=== PATIENT | male | born 1965 | race Caucasian/White ===

== ENCOUNTER 2017-03-07 12:07 | Day surgery (SDC) | payer BC ==
[~2017-03-07 12:07] MED LIST: Buffered Lidocaine 0.9% SYRIN* 5 ML/SYR SYRINGE INTRADERM ONE
[2017-03-07] MEDS ORDERED: Buffered Lidocaine 0.9% SYRIN* 5 ML/SYR SYRINGE ONE (12:48)
[2017-03-07] MEDS ORDERED: cefTRIAXone(*) 1 GM ADVAN ONE (12:48)
--- NOTE | 2017-03-07 13:06 | RAD ---
HISTORY: Right nephrolithiasis, lithotripsy COMPARISONS: February 15, 2017 VIEWS: Frontal views of the abdomen. FINDINGS: BOWEL: There is a nonspecific bowel gas pattern, with nondilated small bowel gas noted. CALCULI: Again noted is a calculus overlying the right renal parenchymal shadow measuring up to 1.3 cm and the current examination. Surgical clips and vascular calcifications are noted in the pelvis. BONES AND SOFT TISSUES: There are no osseous abnormalities. OTHER FINDINGS: The lung bases are clear. There is no subphrenic gas. IMPRESSION: RIGHT NEPHROLITHIASIS
[2017-03-07] MEDS ORDERED: Iohexol 180 (CONTRAST) 10 ML SDV IV ONE (14:30)
[2017-03-07] MEDS ORDERED: fentaNYL* 50 MCG/ML 2 ML VIAL (100 MCG VIAL) ONE (14:33)
[2017-03-07] MEDS ORDERED: Propofol* 10 MG/ML 20 ML BTL IV PUSH ONE (14:35)
[2017-03-07] MEDS ORDERED: Lidocaine 2% PF * 5 ML VIAL ONE (14:35)
[2017-03-07] MEDS ORDERED: fentaNYL* 50 MCG/ML 2 ML VIAL (100 MCG VIAL) IV PRN (14:52)
[2017-03-07] MEDS ORDERED: oxyCODONE/Acetamin 5/325 MG* TAB PO PRN (14:52)
[2017-03-07] MEDS ORDERED: DiMENhydriNATE IV* 50 MG/ML VIAL ONE (16:19)
[2017-03-07] MEDS ORDERED: Ondansetron INJ* 2 MG/ML VIAL ONE (16:19)
[2017-03-07 16:29] VITALS: BP 127/91
--- NOTE | 2017-03-08 11:32 | OP ---
CC: Dr. Bell* OPERATIVE REPORT: DATE OF OPERATION: 03/07/17 - [facility] DATE OF : 65 SURGEON: Sarath Justice MD. ANESTHESIOLOGIST: Charles Gaines MD. ANESTHESIA: General. PRE-OPERATIVE DIAGNOSIS: Right renal calculus (1.5 cm). POST-OPERATIVE DIAGNOSIS: Right renal calculus (1.5 cm). OPERATIVE PROCEDURE: Shockwave lithotripsy of right renal calculus. INDICATION FOR PROCEDURE: Mr. Clark is a 52-year-old white male who is a known stone former and who was noted 2 years ago to have a 1.5 cm calculus in the upper pole of the right kidney. At that time, he had metabolic stone work- up, which showed hypercalciuria and hypocitraturia. He has been on chlorthalidone and on potassium citrate. He had shockwave lithotripsy 2 years ago with partial fragmentation of the stone. He did not pass any fragments. Recent KUB showed the stone to be in the same position and same size. He is admitted for another shockwave lithotripsy. PATHOLOGY: Preoperative KUB showed a 1.5 cm radiopaque calculus in the area of the upper pole of the right kidney. No other abnormalities were noted. DESCRIPTION OF PROCEDURE: After successful general anesthesia, the patient was placed in the supine position on the shockwave lithotripsy table. The right renal calculus was visualized in both the PA and the oblique x-ray views and the position of the generator and of the table were adjusted to have the stone in the focus of the shock waves. A total of 2,400 shocks were then delivered at the rate of 90 shocks per minute. The proper positioning and fragmentation of the stone were monitored periodically. At the completion of the treatment, there seemed to be fragmentation of the stone, however, no stone fragments were seen in the area of the upper pole, infundibulum, or in the renal pelvis. Because of that finding, decision was made not to place a ureteral stent. The patient tolerated the procedure well and left the operating room in good condition. The plan is for observation and to repeat the KUB on an outpatient visit. If the stone fragments do not drop into the renal pelvis, it would be likely that the stone is located in a calyceal diverticulum, which explains the above findings. If that is the case, will decide if he will need PCNL. [id number]/[facility] #: [id number] ELADIO
== END 2017-03-07 16:55 | disposition home or self-care (01) ==
LOC: OR 12:07
PROVIDERS: ATTEND Urology
DX: N20.0 Calculus of kidney (principal); I10 Essential (primary) hypertension; K21.9 Gastro-esophageal reflux disease without esophagitis; R56.9 Unspecified convulsions
CPT/HCPCS: 74000; J0696; J1240; J2405; J2704; J3010

== ENCOUNTER 2017-09-07 10:11 | Day surgery (SDC) | payer BC ==
[~2017-09-07 10:11] MED LIST changes: +Bacitracin OINTMENT* 0.5% 0.5 oz TUBE ONE; +Ciprofloxacin 0.3% OPTH.SOL* 2.5 ML BTL ONE; +EPINEPHRINE 1 MG/ML 1 ML VIAL ONE; +Gelfoam 12-7 ADSORBABL SPONGE* 1 EA SPONGE ONE; +Lidocaine 1.5% EPI 1:200,000* 30 ML SDV ONE
[2017-09-07] MEDS ORDERED: Midazolam* 1 MG/ML 2 ML VIAL (2 MG) ONE (10:48)
[2017-09-07] MEDS ORDERED: fentaNYL* 50 MCG/ML 2 ML VIAL (100 MCG VIAL) ONE (10:48)
[2017-09-07] MEDS ORDERED: Dexamethasone IV* 4 MG/ML 1 ML (4 MG) ONE (11:22)
[2017-09-07] MEDS ORDERED: Ondansetron INJ* 2 MG/ML VIAL ONE (11:22)
[2017-09-07] MEDS ORDERED: Succinylcholine* 20 MG/ML 10 ML VIAL ONE (11:22)
[2017-09-07] MEDS ORDERED: Propofol* 10 MG/ML 20 ML BTL IV PUSH ONE ×2 (11:22)
[2017-09-07] MEDS ORDERED: Lidocaine 2% PF * 5 ML VIAL ONE (11:22)
[2017-09-07] MEDS ORDERED: Levalbuterol HFA INHALER* 1 PUFF MDI ONE (13:12)
[2017-09-07] MEDS ORDERED: PROCHLORPERAZINE INJ 5 MG/ML 2 ML VIAL IV PRN (13:22)
[2017-09-07] MEDS ORDERED: fentaNYL* 50 MCG/ML 2 ML VIAL (100 MCG VIAL) IV PRN (13:22)
[2017-09-07] MEDS ORDERED: HYDROmorphone INJ* 1 MG/ML CARPUJECT SYRINGE IV PRN (13:22)
[2017-09-07] MEDS ORDERED: Levalbuterol 0.63MG/3ML NEB* UNIT OF USE INH ONE (13:22)
[2017-09-07] MEDS ORDERED: Naloxone* 0.4 MG/ML 1 ML VIAL IV PRN (13:22)
[2017-09-07] MEDS ORDERED: Ketorolac INJ* 30 MG/ML 1 ML VIAL ONE (14:19)
[2017-09-07 14:30] VITALS: BP 130/82
--- NOTE | 2017-09-08 13:41 | OP ---
DATE OF OPERATION: 09/07/17 - [facility] DATE OF : 65 SURGEON: Aníbal Dove MD ANESTHESIA: General endotracheal anesthesia. PRE-OP DIAGNOSIS: Right tympanic membrane perforation. POST-OP DIAGNOSIS: Right tympanic membrane perforation. OPERATIVE PROCEDURE: Right tympanoplasty. COMPLICATIONS: None. CONDITION: Good. SPECIMENS: None. ESTIMATED BLOOD LOSS: Minimum. DESCRIPTION OF PROCEDURE: The patient was taken to the operating room and placed in supine position on the operating table, general anesthesia induced and he was orotracheally intubated, turned for the surgery, prepped with Betadine and draped. Microscope was brought in. He had 4 quadrant injection with lidocaine with epinephrine and also in the postauricular crease and over the area for harvesting the temporalis fascia graft. He had a large central perforation, but transtympanically I was able to see the entire rim of the perforation. I used a Grajeda needle to this and the rim was debrided with the cup biopsy forceps and Bellucci. I elevated the tympanic membrane off the malleus, which ended in the center of the perforation. I raised the tympanomeatal flap by using the 70 degree Aurora to make my posterior canal incision, brought it superior and inferiorly and then used the duck wheel to elevate the flap to the annulus, the annulus elevator to elevate the annulus and flipped the tympanomeatal flap anteriorly. There were some adhesions to the joint that were released. I palpated the ossicular chain and had good continuity and motion. The graft was elevated from the temporalis fascia. Incision was made posterior to the auricle superiorly. The temporalis fascia was isolated and graft was harvested. Hemostasis was ensured and the wound was closed with 3-0 deep dermal Vicryl and a running locking 4-0 Vicryl Rapide and some antibiotic ointment was placed there. The graft was left to dry on the back table and the ear was examined again. Gelfoam impregnated with Cipro drops was placed into the middle ear space as the scaffolding for the new graft. The graft was fashioned, laid in place. The tympanomeatal flap was laid back over the graft, proper position with complete closure of the perforation was ensured. Some more of the Gelfoam pledgets were placed on the graft and tympanic membrane and up about half way up the canal and then bacitracin was used to fill the rest of the canal and a cotton ball was placed. The patient tolerated this well, no complications, and transferred to recovery room in stable condition. [id number]/[facility] #: [id number] ELADIO
== END 2017-09-07 14:58 | disposition home or self-care (01) ==
LOC: OR 10:11
PROVIDERS: ATTEND Otolaryngology
DX: H72.01 Central perforation of tympanic membrane, right ear (principal); I10 Essential (primary) hypertension; R94.31 Abnormal electrocardiogram [ECG] [EKG]; F17.290 Nicotine dependence, other tobacco product, uncomplicated; I47.1 Supraventricular tachycardia; I44.7 Left bundle-branch block, unspecified; F41.8 Other specified anxiety disorders
CPT/HCPCS: A9270-GY; J0330; J1100; J1885; J2250; J2405; J2704; J3010

== ENCOUNTER 2018-04-03 07:18 | Day surgery (SDC) | payer BC ==
[~2018-04-03 07:18] MED LIST changes: -Bacitracin OINTMENT* 0.5% 0.5 oz TUBE ONE; -Ciprofloxacin 0.3% OPTH.SOL* 2.5 ML BTL ONE; -EPINEPHRINE 1 MG/ML 1 ML VIAL ONE; +Famotidine IV* 10 MG/ML 2 ML (20 mg) ONE; -Gelfoam 12-7 ADSORBABL SPONGE* 1 EA SPONGE ONE; -Lidocaine 1.5% EPI 1:200,000* 30 ML SDV ONE
[2018-04-03] MEDS ORDERED: ROPIVACAINE 5 MG/ML 30 ML BTL (0.5%) ONE ×2 (07:24→09:10)
[2018-04-03] MEDS ORDERED: Lidocaine 1% MPF* 2 ML VIAL ONE (07:24)
[2018-04-03] MEDS ORDERED: ceFAZolin 2 GM PREMIX in ORs 2 GM/50 ML BAG IVPB ONE (07:39)
[2018-04-03] MEDS: Famotidine IV* 10 MG/ML 2 ML (20 mg) IV ONE ×2 (07:44→07:45)
[2018-04-03] MEDS ORDERED: Scopolamine 1.5 mg* PATCH ONE (08:56)
[2018-04-03] MEDS ORDERED: Midazolam* 1 MG/ML 5 ML VIAL (5 MG) ONE (08:59)
[2018-04-03] MEDS ORDERED: fentaNYL* 50 MCG/ML 2 ML VIAL (100 MCG VIAL) ONE ×2 (09:13→09:40)
[2018-04-03] MEDS ORDERED: KETAMINE HCL* 50 MG/ML 10 ML VIAL ONE (09:33)
[2018-04-03] MEDS ORDERED: Naloxone* 0.4 MG/ML 1 ML VIAL IV PRN (09:52)
[2018-04-03] MEDS ORDERED: HYDROmorphone INJ1* 1 MG/ML SYRINGE IV PRN (09:52)
[2018-04-03] MEDS ORDERED: DiMENhydriNATE IV* 50 MG/ML VIAL IV PUSH PRN (09:52)
[2018-04-03] MEDS ORDERED: oxyCODONE TAB* 5 MG TAB PO PRN (09:52)
[2018-04-03] MEDS ORDERED: Acetaminophen TAB* 325 MG PO PRN (09:52)
[2018-04-03] MEDS ORDERED: Propofol* 10 MG/ML 20 ML BTL IV PUSH ONE (10:07)
[2018-04-03] MEDS ORDERED: DiMENhydriNATE IV* 50 MG/ML VIAL ONE ×2 (10:07→12:19)
[2018-04-03] MEDS ORDERED: Succinylcholine* 20 MG/ML 10 ML VIAL ONE (10:07)
[2018-04-03] MEDS ORDERED: Dexamethasone IV* 4 MG/ML 1 ML (4 MG) ONE (10:07)
[2018-04-03] MEDS ORDERED: Ondansetron INJ* 2 MG/ML VIAL ONE (10:07)
[2018-04-03] MEDS ORDERED: Ketorolac INJ* 30 MG/ML 1 ML VIAL ONE (10:07)
[2018-04-03] MEDS ORDERED: Lidocaine 2% PF * 5 ML VIAL ONE (10:07)
[2018-04-03] MEDS ORDERED: Scopolamine 1.5 mg* PATCH TRANSDERM SCH (11:00)
[2018-04-03] MEDS ORDERED: hydrALAZINE IV* 20 MG/ML VIAL ONE (11:28)
[2018-04-03] MEDS ORDERED: Midazolam* 1 MG/ML 2 ML VIAL (2 MG) ONE (11:45)
[2018-04-03] MEDS ORDERED: Metoclopramide IV* 5 MG/ML 2 ML VIAL ONE (13:06)
[2018-04-03 13:46] VITALS: BP 116/80
--- NOTE | 2018-04-04 10:55 | OP ---
CC: PCP, Kristian Bell MD * DATE OF OPERATION: 04/03/18 [facility] DATE OF : 65 SURGEON: Esther Ortiz MD NEWSPAPER EDITOR MANAGING: MARIA R Rodrigues. An assistant finance manager was needed for the entirety of the case to help with positioning, retraction and was utilized throughout all portions of the case. ANESTHESIOLOGIST: Dr. Pierre. ANESTHESIA: General interscalene block. PRE-OP DIAGNOSIS: Left shoulder massive tear of the supra and infraspinatus tendons as well as subscapularis tendon with possible biceps subluxation versus rupture. POST-OP DIAGNOSIS: Mild glenohumeral arthritis, biceps tendon rupture intrasubstance of the tendon, massive full thickness tears in the supra and infraspinatus tendons as well as subscapularis. OPERATIVE PROCEDURE: Left shoulder arthroscopy with: 1. Extensive glenohumeral debridement. 2. Revision subacromial decompression with acromioplasty. 3. Revision rotator cuff repair of the supraspinatus tendon as well as additional repair of the infraspinatus tendon. 4. Arthroscopic repair of subscapularis. 5. REGENETEN patch augmentation. A 22 modifier was used as this was a massive three tendon tear as well as the revision situation with abundant scar. COMPLICATIONS: None. ESTIMATED BLOOD LOSS: Minimal. IMPLANTS USED: Four Alfaro 4.75 Healicoil and three Multi-Fix, as well as one medium sized patch and an appropriate number of susy. INDICATIONS: Sravan is a 53-year-old male who has had a previous history of rotator cuff repair by Dr. Ocampo 10 or so years ago. He then injured it eight years ago and then again this past year, he had persistent pain and weakness in his shoulder. He is 53 years old. After an MRI demonstrated full thickness massive tears of the supraspinatus and infraspinatus as well as subscapularis with biceps subluxation versus rupture, an extensive discussion with the patient was made and because of his young age and his activity level, decision was made to treat this. He agreed to do a revision surgery, so risks and benefits were discussed at length and included, but not limited to bleeding, infection, damage to nerves, vessels, surrounding structures, wound nonhealing, persistent pain, need for surgery, scarring, stiffness, incomplete relief of symptoms, risk of anesthesia, failure of repair, need for further surgery, risk of stiffness, persistent pain, weakness, risk of DVT as well as risk of anesthesia. DESCRIPTION OF PROCEDURE: The patient was greeted in the preoperative area by the attending surgeon. The correct extremity was marked, consent was confirmed. The patient underwent interscalene nerve block by the anesthesiologist after which he was brought back to the operating suite where he was placed in a supine position on the operating room table and then underwent general anesthesia with endotracheal intubation after which he was placed in the right lateral decubitus position with all bony prominences padded. He was secured with a peg board. He was draped down sterile with 10 pounds of traction. The left shoulder was prepped and draped in the usual sterile fashion beginning with chlorhexidine soap, scrub, and alcohol wipe and a final prep with ChloraPrep. After appropriate surgical pause indicating site, side, procedure, and administration of antibiotics, a standard postero-lateral portal was made sharply with an 11 blade. The scope was introduced through the joint. The joint was examined. There were grade 1 and 2 changes inferiorly at the glenohumeral joint. Anterior, posterior and superior labrum had unstable tearing. The biceps tendon was probed and it had a previous biceps tendon rupture distally. There is a full thickness tear of the subscapularis as well as full thickness massive tear of the supra and infraspinatus tendon with superior migration of the humeral head. At this point, the anterior portal was made in an outside-in fashion and a shaver was used to debride back the anterior , posterior, superior labrum as well as the biceps stump as well as to do a small chondroplasty. At this point, attention was directed to the subacromial space. With the scope positioned in the subacromial space, the lateral portal was made in an outside-in fashion. There was abundant scar anterior laterally because his previous surgery had been open. Previous rotator cuff sutures were visible and embedded in the tendon, completely ruptured from the footprint. The portal placement was challenging because of the abundant scar tissue to get in. At this point, a lateral portal was made and a shaver was used to debride back the bursa which was thick and adherent to the deltoid. The cuff was then carefully mobilized beginning with the subscapularis tissue, it was tried to repair this arthroscopically from the subacromial space. A 70-degree scope was then used to help facilitate this. Prior to that, a revision acromioplasty was done using a 4-0 oval natalya. All loose debris and tissue was removed from this portion of the case. Attention was directed to the subscapularis which was carefully mobilized and released of its adhesions. This still had some fibers intact attached to the confluence of the supraspinatus tendon. The subscapularis was then carefully mobilized. It was found to be not the entire tendon but a full thickness portion of the tendon, therefore decision was made to do a double-row fixation first. A second anterior portal was made through a separate stab incision through the scar which was somewhat challenging. The lesser tuberosity was then carefully prepared and debrided first with the rasp as well as the natalya to offer bony bleeding. Then a Healicoil was placed with excellent purchase. Bone quality was good. Sutures were then passed through the tendon in horizontal mattress configuration. These were then tied down using arthroscopic knot tying. This helped nicely in reapproximating the subscapularis and actually helped to bring some of the massive portions of the supra and infraspinatus back panel padder to the greater tuberosity. These were initially scarred all the way to the level of the glenoid. His cuff tissue was good, although somewhat difficult to penetrate at the previously repaired supraspinatus repair. The greater tuberosity was then prepared in the usual fashion using electrocautery device, the rasp as well as the 4-0 oval natalya to gently decorticate. The cuff was fully mobilized, the abundant bursa present posteriorly was removed using electrocautery device as well as shaver. This helped us to visualize the entire supra and infraspinatus tendon. This was then manually probed and found to be able to be reapproximated. At this point, decision was made to fix this with three 4.75 Healicoil. The three Healicoils were placed, one in the medial row, the greater tuberosity, attached to try to capture the anterior middle and posterior aspects of the supraspinatus as well as the infraspinatus tendon. The suture was then passed through horizontal mattress with an occasional simple configuration to try to help mobilize tissue. Once this was done, the sutures were then tied down using the arthroscopic knot tying technique. This helped to reapproximate and restore the tendon to the footprint along the greater tuberosity. After this was done, plan was made to do double row repairs. First, beginning with the subscapularis, a Multi-Fix anchor was placed. All sutures were passed through the Multi-Fix and placed more lateral to the lesser tuberosity to allow for double-row fixation of the subscapularis. Two more Multi- Fixes were then brought to the table and one strand from each of the previously placed sutures, this will be six strands which were placed, an anterolateral Multi- Fix and then six strands placed posterolateral for fixation. This allowed for double-row fixation of this massive rotator cuff tear. At this point, because this was a massive tear and a revision, decision for REGENETEN patch was made to help augment healing in this young person's case. A medium size REGENETEN patch was brought to the field and was then placed under arthroscopic visualization. This was then secured with appropriate tendon susy and then bone susy. The position was found to be adequate. Care was taken not to damage the previously repaired rotator cuff sutures. Final images were obtained. The wounds were irrigated with sterile saline. The portals were closed with 0 nylon. Sterile dressings, a Cryo/Cuff and UltraSling were then placed. He was awoken from anesthesia and transferred to PACU in stable condition. POSTOPERATIVE PLAN: He will be in a sling for six weeks. He will be discharged on pain medications and antibiotics. DVT prophylaxis considered, but deferred due to no previous personal or family history. I will see the patient back in 10 to 14 days. He is only allowed elbow, hand and wrist range of motion, no lifting, pushing or pulling. [id number]/[facility] #: [id number] [facility]
== END 2018-04-03 13:42 | disposition home or self-care (01) ==
LOC: OREAST 07:18
PROVIDERS: ATTEND Orthopaedic Surgery
DX: S46.012D Strain of muscle(s) and tendon(s) of the rotator cuff of left shoulder, subsequent encounter (principal); S46.112D Strain of muscle, fascia and tendon of long head of biceps, left arm, subsequent encounter; M19.012 Primary osteoarthritis, left shoulder; X58.XXXD Exposure to other specified factors, subsequent encounter; Y92.9 Unspecified place or not applicable; G89.18 Other acute postprocedural pain; I10 Essential (primary) hypertension; Q61.3 Polycystic kidney, unspecified; F41.8 Other specified anxiety disorders
CPT/HCPCS: A9270-GY; C1713; J0330; J0360; J0690; J1100; J1240; J1885; J2250; J2405; J2704; J2765; J2795; J3010

== ENCOUNTER 2018-05-20 15:49 | Observation (INO) | payer BC ==
[2018-05-20] MEDS ORDERED: NS 0.9% 1000 ML* 1,000 ML IV ONE (16:16)
--- OUTSIDE RECORDS SUMMARY | 2018-05-20 16:16 | XMS REPORT | Continuity of Care Document ---
:1965 External Reference #:[id number] Author Name Kelliliana Wood Care Team Providers Name Role Phone Kristian Bell MD Primary Care Physician Unavailable Payers Type Date Identification Numbers Payment Provider Subscriber Effective: 2016 Policy Number: [id number] BS Facets Ayse Kruse PayID: [id number] [address] [address] [place] [address] Effective: 2011 Policy Number: [id number] BS Facets Ayse Kruse Expires: 2016 PayID: [id number] [address] [address] [place] [address] Expires: 2011 Policy Number: [id number] BS Of SKYLER Kruse Group Number: BOCES [address] [address] PayID: [id number] [place] [address] Onset: 2011 Policy Number: [id number] Temo W/C Sravan Clark PayID: [id number] [address] [address] [place] [address] Advance Directives Description No Information Available Problems Date Description Provider Status Onset: 12/19/2014 Complex partial epileptic seizure Milka Marte NP Active Onset: 02/23/2018 Strain of muscle(s) and tendon(s) of the Esther Ortiz MD Active rotator cuff of left shoulder, subsequent encounter Onset: 04/14/2018 Full thickness rotator cuff tear Esther Ortiz MD Active Onset: 04/14/2018 Localized, primary osteoarthritis of the Esther Ortiz MD Active shoulder region Family History Date Family Member(s) Problem(s) Comments General Pt is adopted Biological mom did not have cardiac issues Father due to Unknown Causes () Mother due to Unknown Causes () Social History Type Date Description Comments Sex Unknown Marital Status Lives With Spouse Lives With 08/22/2017 Daughters 14 and 16 2017 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 ETOH Use Rarely consumes alcohol Recreational Drug Use Current Drug User Tobacco Use Start: Unknown Patient has never smoked Recreational Drug Use Current Drug User marijuana occ Smoking Status Reviewed: 05/16/18 Patient has never smoked Exercise Type/Frequency Exercises sporadically Allergies, Adverse Reactions, Alerts Date Description Reaction Status Severity Comments 03/31/2005 diltiazem Active fatigue 12/02/2010 Hydrocodone Active Medications Medication Date Status Form Strength Qnty SIG Indications Ordering Provider Lamictal XR 09/08/ Active Tablets ER 100mg 180ta take 2 by Ankita 2012 24HR bs mouth Cowdery, every M.D. night at bedtime Protonix 11/16/ Active Tablets DR 40mg 30tab 1 po qd Zachary 2010 jessica Resendez M.D. Norvasc 06/26/ Active Tablets 2.5mg 30tab 1 po qd Zachary 2003 jessica Resendez M.D. Folic Acid 03/28/ Active Tablets 1mg 90tab 1 po bid Zachary 2002 jessica Resendez M.D. Viagra 03/28/ Active Tablets 100mg 1/2 po Zachary 2002 prn Kate Resendez M.D. Aspirin / Active Tablets DR 81mg 50tab 1 po qd Unknown 0000 s Celexa / Active Tablets 10mg 1 + 1/2 Zachary 0000 by mouth F. every day Darinel Resendez Flonase Allergy / Active Suspension 50mcg/Act spray 1 Unknown Relief 0000 spray in each nostril daily Ativan 00/ Active Tablets 1mg take 1/4 Unknown 0000 - 1/2 tab prn (very rare use) Potassium 00/ Active Tablets ER 15Meq 1 po bid Unknown Citrate ER 0000 (1620 mg) Chlorthalidone / Active Tablets 50mg 1 by Unknown 0000 mouth every day Ibuprofen 04/05/ Hx Tablets 800mg 90tab take 1 by Esther 2018 - s mouth Yaseen, 05/15/ three MD 2018 times a day as needed for pain. take with food (rare use) Percocet 04/03/ Hx Tablets 5-325mg 40tab 1 tabs by Esther 2017 mouth Angel, 04/06/ every 4-6 MD 2018 hours as needed pain Keflex 04/03/ Hx Capsules 500mg 12cap take 1 Reneenemingo 2017 tab by Angel, 04/06/ mouth MD 2017 four times a day x 3 days Tramadol HCL 03/15/ Hx Tablets 50mg 20tab 1 tablet Reneeneb 2017 by mouth Angel, 05/15/ every 6 MD 2018 hours as needed pain Percocet 04/28/ Hx Tablets 5-325mg 30tab 1 po Flaco 2011 q4-6h prn Siva 10/23/ pain M.D. 2013 Lamictal 11/16/ Hx Tablets 100mg 90tab 1 po bid Zachary 2010 - F. 09/08/ Dipti, 2012 M.D. Celexa 11/16/ Hx Tablets 20mg 30tab 1 po qd Zachary 2010 - s F. 12/11/ Dipti, 2015 M.D. Juice Plus Fibre 11/16/ Hx Liquid 1.5Grams 1 Zachary 2010 - F. 12/11/ per day Dipti, 2015 M.D. Antibiotic pt 06/25/ Hx Zachary unsure name 2003 - . 03/31/ Dipti, 2004 M.D. Cardizem CD 04/12/ Hx Capsules 120mg 30cap 1 po qd Zachary 2002 - s . 06/26/ Dipti, 2003 M.D. Nitroquick 04/01/ Hx Tablets 0.3mg 25tab 1 sl prn. Zachary 2002 - can . 03/31/ repeat q Dipti, 2004 5 min up M.D. to 3 doses total. replace q 6 months Nasonex 03/28/ Hx Suspension 50mcg 2 Sprays Zachary Intranasal [place] 2002 - Each . 12/11/ Nostril Dipti, 2015 prn M.D. Ibuprofen 16/ Hx Tablets 200mg prn Zachary 2002 - F. 10/23/ Dipti, 2012 M.D. Claritin 03/28/ Hx Capsules 10mg 30cap 1 tablet Zachary 2002 - s daily prn F. 10/23/ Dipti2012 MAngelDAngel Ativan 03/28/ Hx Tablets 1mg 1 po q 6 Zachary 2003 - hr prn F. 12/02/ Dipti, 2010 M.D. Wellbutrin SR 03/27/ Hx Tablets 150mg 60tab 1 po bid Zachary 2002 - s F. 11/16/ Jeffrey, 2010 M.D. Ibuprofen / Hx Tablets 200mg 1 tab po Unknown 0000 - prn 2017 Immunizations Description No Information Available Vital Signs Date Vital Result Comment 05/16/2018 9:38am Height 69 inches 5'9" Weight 180.00 lb Heart Rate 88 /min BP Systolic 140 mmHg BP Diastolic 86 mmHg BMI (Body Mass Index) 26.6 kg/m2 04/25/2018 9:17am Height 68 inches 5'8" Weight 183.75 lb with shoes Heart Rate 95 /min BP Systolic Sitting 124 mmHg BP Diastolic Sitting 88 mmHg O2 % BldC Oximetry 95 % at rest on room air BMI (Body Mass Index) 27.9 kg/m2 Ejection Fraction 55-60% 08-24-2017 04/14/2018 11:33am Height 68 inches 5'8" Weight 185.00 lb BP Systolic 128 mmHg BP Diastolic 70 mmHg Respiratory Rate 18 /min Body Temperature 97.1 F Pain Level 1 BMI (Body Mass Index) 28.1 kg/m2 03/14/2018 9:45am Height 68 inches 5'8" Weight 185.00 lb BP Systolic 126 mmHg BP Diastolic 80 mmHg Respiratory Rate 18 /min Pain Level 2 BMI (Body Mass Index) 28.1 kg/m2 02/23/2018 10:50am Height 68 inches 5'8" Weight 185.00 lb Heart Rate 78 /min BP Systolic 146 mmHg BP Diastolic 80 mmHg Respiratory Rate 12 /min Pain Level 8 BMI (Body Mass Index) 28.1 kg/m2 08/22/2017 3:03pm Height 69 inches 5'9" Weight 190.00 lb w/shoes Heart Rate 96 /min BP Systolic 140 mmHg L/Arm Reg Cuff BP Diastolic 80 mmHg L/Arm Reg Cuff BP Systolic Sitting 139 mmHg la repeat sitting BP Diastolic Sitting 82 mmHg la repeat sitting BMI (Body Mass Index) 28.1 kg/m2 Ejection Fraction 60% 07/05/2008 04/27/2017 11:32am Height 69 inches 5'9" Weight 182.00 lb Heart Rate 77 /min BP Systolic Sitting 120 mmHg BP Diastolic Sitting 82 mmHg Respiratory Rate 16 /min BMI (Body Mass Index) 26.9 kg/m2 12/17/2015 8:56am Height 69 inches 5'9" Weight 180.00 lb Heart Rate 68 /min BP Systolic Sitting 122 mmHg BP Diastolic Sitting 88 mmHg Respiratory Rate 16 /min BMI (Body Mass Index) 26.6 kg/m2 12/19/2014 9:17am Height 69 inches 5'9" Weight 180.00 lb Heart Rate 80 /min BP Systolic Sitting 142 mmHg BP Diastolic Sitting 90 mmHg Respiratory Rate 16 /min BMI (Body Mass Index) 26.6 kg/m2 10/22/2013 8:35am Height 69 inches 5'9" Weight 186.38 lb Heart Rate 76 /min BP Systolic Sitting 122 mmHg BP Diastolic Sitting 88 mmHg Respiratory Rate 16 /min BMI (Body Mass Index) 27.5 kg/m2 10/23/2012 8:14am Heart Rate 72 /min BP Systolic Sitting 120 mmHg BP Diastolic Sitting 84 mmHg Respiratory Rate 20 /min 03/02/2012 4:28pm Height 69 inches 5'9" Weight 180.00 lb Heart Rate 74 /min BP Systolic 141 mmHg BP Diastolic 104 mmHg BMI (Body Mass Index) 26.6 kg/m2 12/02/2010 2:30pm Height 69 inches 5'9" Weight 184.00 lb Heart Rate 80 /min BP Systolic Sitting 134 mmHg BP Diastolic Sitting 106 mmHg BMI (Body Mass Index) 27.2 kg/m2 03/31/2005 8:59am Height 69 inches 5'9" Weight 175.00 lb Heart Rate 73 /min BP Systolic Sitting 124 mmHg L BP Diastolic Sitting 94 mmHg L BP Systolic Standing 130 mmHg R BP Diastolic Standing 100 mmHg R BMI (Body Mass Index) 25.8 kg/m2 06/26/2003 3:05pm Height 69 inches Weight 186.00 lb Heart Rate 80 /min BP Systolic Sitting 140 mmHg BP Diastolic Sitting 100 mmHg BP Systolic Standing 140 mmHg BP Diastolic Standing 104 mmHg BMI (Body Mass Index) 27.5 kg/m2 05/23/2003 11:24am Height 69 inches Weight 192.00 lb Heart Rate 84 /min BP Systolic Sitting 120 mmHg BP Diastolic Sitting 84 mmHg BP Systolic Standing 130 mmHg BP Diastolic Standing 90 mmHg BMI (Body Mass Index) 28.4 kg/m2 05/23/2003 11:09am Height 69 inches Weight 192.00 lb Heart Rate 84 /min BP Systolic Sitting 120 mmHg BP Diastolic Sitting 84 mmHg BP Systolic Standing 140 mmHg BP Diastolic Standing 100 mmHg BMI (Body Mass Index) 28.4 kg/m2 03/28/2003 2:42pm Height 69 inches Weight 191.00 lb Heart Rate 77 /min BP Systolic Sitting 120 mmHg BP Diastolic Sitting 80 mmHg BP Systolic Standing 126 mmHg BP Diastolic Standing 90 mmHg BMI (Body Mass Index) 28.2 kg/m2 Results Test Date Facility Test Result H/L Range Note Total Protein 12/22/2015 [facility] Urine Collection 24 N 24HR Urine [address] [place] [address] [phone] Urine Total Volume 2800 mL N Urine Random Total Protein < 6 mg/dL N Urine Total Protein/24HR (SEE NOTE) mg/24Hr N 0-165 1 Creatinine 12/22/2015 [facility] Creatinine 1.14 mg/dL High 0.51-0.[address] [place] [address] [phone] Urine Collection Time 24 N Urine Total Volume 2800 mL N Urine Random Creatinine 63.71 mg/dL N Creatinine Clearance 109 mL/min N 97-137 Liver Function 12/22/2015 [facility] Direct 0.10 mg/dL N 0.03- 0.18 Panel [address] [place] [address] [phone] Indirect Bilirubin 1.0 mg/dL N 0.3-1.0 Lipid Profile 12/22/2015 [facility] Triglycerides 66 mg/dL N 2 (Trig/Chol/HDL) [address] [place] [address] [phone] Cholesterol 170 mg/dL N 3 HDL Cholesterol 42.6 mg/dL N 4 LDL Cholesterol 114 mg/dL N 5 Comp Metabolic Panel 12/22/2015 [facility] Sodium 138 mmol/L N 133-145 [address] [place] [address] [phone] Potassium 3.6 mmol/L N 3.5-5.0 Chloride 105 mmol/L N 101-111 Co2 Carbon Dioxide 27 mmol/L N 22-32 Anion Gap 6 mmol/L N 2-11 Glucose 94 mg/dL N 70-100 Blood Urea Nitrogen 22 mg/dL N 6-24 Creatinine 1.15 mg/dL N 0.67-1.17 One Over Creatinine 0.80 mg/dL N 0.67-1.17 BUN/Creatinine Ratio 19.1 N 8-20 Calcium 8.9 mg/dL N 8.6-10.3 Total Protein 6.4 g/dL N 6.4-8.9 Albumin 4.0 g/dL N 3.2-5.2 Globulin 2.4 g/dL N 2-4 Albumin/Globulin Ratio 1.7 N 1-3 Total Bilirubin 1.10 mg/dL High 0.2-1.0 Alkaline Phosphatase 62 U/L N 34-104 Alt 19 U/L N 7-52 Ast 15 U/L N 13-39 Egfr Non- 67.3 N >60 Egfr 86.6 N >60 6 Laboratory test 12/22/2015 [facility] Lamotrigine 4.8 g/mL N 2.5 - [address] (Lamictal) 15.[address] [place] [address] [phone] Laboratory test 01/09/2015 Lamotrigine 4.7 g/mL N 2.5 - 8 finding (Lamictal) 15.0 Laboratory test 10/22/2013 Lamotrigine 4.5 g/mL N 2.5 - 9 finding 15.0 Laboratory test 10/03/2012 [facility] Lamotrigine 4.8 g/mL 2.5 - [address] [place] [address] [phone] Cath Panel 11/16/2010 [facility] PTT (Aptt) 28.2 25.15-[address] [place] [address] [phone] CBC With Manual 11/16/2010 [facility] White Blood 8.7 CUMM 4.8-10.[address] [place] [address] [phone] Red Cell Count 4.92 CUMM 4.6-6.2 Hemoglobin 15.0 g/dL 14.0-18.0 Hematocrit 45 % 42-52 Mean Corpuscular Volume 91 um3 80-94 Mean Corpuscular Hemoglob 31 pg 27-31 Mean Corpuscular HGB Cone 34 g/dL 32-36 Redcell Distribution WDTH 13 % 10.5-15 Platelet Count 222 CUMM 150-450 Mean Platelet Volume 8.6 um3 7.4-10.4 Polysegmented Neutrophil 72 % 38-83 Lymphocyte 22 % Low 25-47 Monocyte 5 % 0-13 Eosinophil 1 % 0-6 Absolute Neutrophil Count 6.2 RBC Morphology NORMAL Basic Metabolic Panel 11/16/2010 [facility] Sodium 137 mmol/L 135-145 [address] [place] [address] [phone] Potassium 4.2 mmol/L 3.5-5.0 Chloride 106 mmol/L 101-111 Co2 (Carbon Dioxide) 26.0 mmol/L 22-32 Anion Gap 5.0 mmol/L 2-11 11 Glucose 96 mg/dL 70-100 BUN 19 mg/dL 6-24 Creatinine 1.10 mg/dL 0.50-1.40 One Over Creatinine 0.90 BUN/Creatinine Ratio 17.3 8-20 Calcium 9.2 mg/dL 8.1-9.9 eGFR Non- 72.4 > 60 eGFR 93.1 > 60 12 Protime 11/16/2010 [facility] Inr 1.02 0.82-1.17 13 [address] [place] [address] [phone] Protime 12.1 SEC 10.2-14.8 14 1 Unable to calculate due to insufficient protein Unable to calculate due to insufficient protein 2 Desirable <150 Borderline high 150-199 High 200-499 Very High >500 3 Desirable <200 Borderline high 200-239 High >239 4 Low <40 Desirable: 40-60 High: >60 5 Desirable: <100 mg/dL Near Optimal: 100-129 mg/dL Borderline High: 130-159 mg/dL High: 160-189 mg/dL Very High: >189 mg/dL 6 Because ethnic data is not always readily available, this report includes an eGFR for both -Americans and non- Americans. The National Kidney Disease Education Program (NKDEP) does not endorse the use of the MDRD equation for patients that are not between the ages of 18 and 70, are , have extremes of body size, muscle mass, or nutritional status, or are non- or non-. According to the National Kidney Foundation, irrespective of diagnosis, the stage of the disease is based on the level of kidney function: Stage Description GFR(mL/min/1.73 m(2)) 1 Kidney damage with normal or decreased GFR 90 2 Kidney damage with mild decrease in GFR 60-89 3 Moderate decrease in GFR 30-59 4 Severe decrease in GFR 15-29 5 Kidney failure <15 (or dialysis) 7 Test Performed by: [place] [address] Business Solutions Analyst: Ángel Chi II, M.D., Ph.D. 8 Test Performed by: [place] [address] Business Solutions Analyst: Ángel Chi II, M.D., Ph.D. 9 Test Performed by: [place] [address] Business Solutions Analyst: Jun Velazco III, M.D. 10 Test Performed by: [place] [address] Business Solutions Analyst: Jun Velazco III, M.D. 11 Anion gap measurement may be of limited value in the presence of any alkalosis, especially in a combined acid base disorder. . 12 Because ethnic data is not always readily available, this report includes an eGFR for both -Americans and non- Americans. The National Kidney Disease Education Program (NKDEP) does not endorse the use of the MDRD equation for patients that are not between the ages of 18 and 70, are , have extremes of body size, muscle mass, or nutritional status, or are non- or non-. According to the National Kidney Foundation, irrespective of diagnosis, the stage of the disease is based on the level of kidney function: Stage Description GFR(mL/min/1.73 m(2)) 1 Kidney damage with normal or decreased GFR 90 2 Kidney damage with mild decrease in GFR 60-89 3 Moderate decrease in GFR 30-59 4 Severe decrease in GFR 15-29 5 Kidney failure <15 (or dialysis) 13 Recommended INR for Patients on Oral Anticoagulants Prophylaxis 2.0 - 3.0 Treatment of thrombosis 2.0 - 3.0 Prevention of embolism 2.0 - 3.0 Prevention of embolism from prosthetic heart valves 2.5 - 3.5 14 DIAGNOSIS,TREATMENT,AND THERAPY MUST BE BASED ON THE INR VALUE ALONE. Procedures Date Code Description Status 04/25/2018 90944 EKG Tracing & Interpretation Completed 04/03/2018 59898 Arthroscopy Shoulder,W/Rotator Cuff Repair Completed 04/03/2018 09293 Arthroscopy Shoulder,W/Rotator Cuff Repair Completed 04/03/2018 11375 Arthroscopy,Shoulder Decompression Of Subacromial Space Completed W/Acromio 04/03/2018 27645 Arthroscopy,Shoulder Decompression Of Subacromial Space Completed W/Acromio 08/24/2017 11161 ECHO Transthoracic, Real-Time 2D With Doppler And Color Completed Flow 08/24/2017 97627 ECHO Transthoracic, Real-Time 2D With Doppler And Color Completed Flow 08/22/2017 44449 EKG Tracing & Interpretation Completed 05/03/2012 11267 Arthroscopy,Shoulder Decompression Of Subacromial Space Completed W/Acromio 05/03/2012 03021 Arthroscopy,Shoulder Decompression Of Subacromial Space Completed W/Acromio 05/03/2012 43391 Arthroscopy Shoulder,W/Rotator Cuff Repair Completed 05/03/2012 05620 Arthroscopy Shoulder,W/Rotator Cuff Repair Completed 03/02/2012 28462 Rad Shoulder Comp, Min. 2 Views Completed 03/02/2012 21201 Rad Shoulder Comp, Min. 2 Views Completed 11/19/2010 62741 Left Heart Cath. Incl S/I Coronaries, Angio S/I V Gram If Completed Done 11/16/2010 77778 ECHO Stress Test Incl Perf Contiuous ekg Monitoring W/Phys Completed Superv 07/05/2008 37600 ECHO Transthorasic Realtime 2D W Doppler & Color Flow Hosp Completed 04/26/2005 03307 EKG, Interpretation Only Completed 03/31/2005 80323 EKG Tracing & Interpretation Completed 04/12/2003 15308 ECHO/Stress Completed 04/12/2003 54269 Stress Test Completed 04/01/2003 88438 EKG Tracing & Interpretation Completed Encounters Type Date Location Provider Dx Diagnosis Office Visit 04/25/2018 [facility] Zachary Love I34.0 Nonrheumatic mitral 9:20a Darinel Resendez (valve) insufficiency R94.31 Abnormal electrocardiogram [ECG] [EKG] I77.810 Thoracic aortic ectasia Office Visit 03/14/2018 9:45a Orthopedic Esther Ortiz, M75.122 Complete Services Of MD dowtr-cuff [facility] tear/ruptr of left shoulder, not trauma Office Visit 02/23/2018 10:30a Orthopedic Esther Ortiz, S46.012D Strain of Services Of MD villa/robin the [facility] rotator cuff of left shoulder, subs S46.012A Strain of daisy/tend the rotator cuff of left shoulder, init Office Visit 08/22/2017 3:00p [facility] Zachary Love I10 Essential (primary) Darinel Resendez hypertension R94.31 Abnormal electrocardiogram [ECG] [EKG] I47.1 Supraventricular tachycardia I44.7 Left bundle-branch block, unspecified Z01.810 Encounter for preprocedural cardiovascular examination H90.5 Unspecified sensorineural hearing loss Office Visit 04/27/2017 11:30a [place] Ankita Vera, G40.209 Local-rel [facility] Neurologic M.DAngel epi w cmplx prt Services Of Hospital Medicine Director seiz,not ntrct,w/o stat epi Office Visit 12/17/2015 8:30a [place] Ankita Vera, G40.209 Local-rel [facility] Neurologic M.DAngel epi w cmplx prt Services Of Hospital Medicine Director seiz,not ntrct,w/o stat epi Office Visit 12/19/2014 9:30a [place] Milka Marte 345.40 Local-Related Neurologic [employer] Epilepsy W/O Services Of [facility] Mention Of Intractable Epilepsy Office Visit 10/22/2013 8:30a [place] Ankita Vera 345.40 Local-Related Neurologic M.DAngel Epilepsy W/O Services Of [facility] Mention Of Intractable Epilepsy 585.9 Chronic Kidney Disease Unspecified Office Visit 12/21/2012 1:15p Orthopedic Maria Eugenia Almanza, 840.4 Sprains & Strains Services Of RPA-C Rotator Cuff [facility] (Capsule) Office Visit 10/23/2012 8:15a [place] Rosy Luciano 345.40 Local- Related Services Of Joyce Vera M.D. Epilepsy W/O Mention Of Intractable Epilepsy 585.9 Chronic Kidney Disease Unspecified Office Visit 10/05/2012 9:45a Orthopedic Flaco Paniagua, 840.4 Sprains & Strains Services Of Darinel Rotator Cuff [facility] (Capsule) Office Visit 10/02/2012 9:30a [place] Neu[facility]ic Ankita 345.40 Local- Related Services Of Joyce Vera M.D. Epilepsy W/O Mention Of Intractable Epilepsy 585.9 Chronic Kidney Disease Unspecified 401.9 Hypertension Unspec Office Visit 04/07/2012 9:15a Orthopedic Flaco Paniagua, 840.4 Sprains & Services Of [facility] M.D. Strains Rotator Cuff (Capsule) Office Visit 03/02/2012 2:30p Orthopedic Flaco Paniagua, 840.8 Sprains & Services Of [facility]. M.D. Strains Shoulder & Upper Arm Other Spec Sites 840.8 Sprains & Strains Shoulder & Upper Arm Other Spec Sites Office Visit 12/02/2010 2:40p [place] Hoa 401.1 Hypertension Cardiology Carmencita Calixto Benign 414.01 Coronary Atherosclerosis Ewiiaapaayp 585.9 Chronic Kidney Disease Unspecified Office Visit 06/21/2006 2:00p Neurosurgery Ollie Barrientos 805.2 FX Dorsal Services Of [facility] Darinel Pope (Thoracic) Vertebra Closed W/O Spinal Cord Injury Office Visit 03/31/2005 8:40a [facility] Zachary Love 786.50 Pain Chest Darinel Resendez Unspec 427.0 PSVT Paroxysmal Supraventricular Tachycardia 401.0 Hypertension Malignant Office Visit 04/12/2003 2:00p [facility] Zachary Love 786.59 Pain Chest Darinel Resendez Other 401.1 Hypertension Benign Office Visit 04/01/2003 2:20p [facility] Zachary Love 786.59 Pain Chest Darinel Resendez Other Plan of Treatment Future Appointment(s):06/27/2018 9:30 am - Esther Ortiz MD at [facility]opedic [facility]06/16/2018 10:00 am - Ankita Vera M.D. at [place] Neurologic Services Of [facility]
--- OUTSIDE RECORDS SUMMARY | 2018-05-20 16:16 | XMS REPORT ---
:1965 External Reference #:[id number] Author Organization [facility] Address [address] [facility] [address] [place] [address] [place] [address] Phone [phone] Care Team Providers Name Role Phone Kristian Bell MD Primary Care Physician Unavailable Payers Type Date Identification Numbers Payment Provider Subscriber Commercial Effective: Policy Number: ALIZE Ernesto Kruse 2016 [id number] PayID: [id number] [address] [address] [place] [address] Medigap Part B Effective: 2011 Policy Number: BS Ernesto Kruse [id number] Expires: 2016 PayID: [id number] [address] [address] [place] [address] [employer]igap Part B Expires: 2011 Policy Number: BS Shantal Kruse [id number] Group Number: DAYES [address] [address] PayID: [id number] [place] [address] Workers Compensation Onset: 2011 Policy Number: Temo Guerrero/Brandi Sravan Clark [id number] PayID: [id number] [address] [address] [place] [address] Problems Date Description Provider Status Onset: 12/19/2014 Complex partial epileptic seizure Milka Marte NP Active Onset: 02/23/2018 Strain of musc/tend the rotator cuff of Esther Ortiz MD Active left shoulder, subs Onset: 04/14/2018 Full thickness rotator cuff tear Esther Ortiz MD Active Onset: 04/14/2018 Localized, primary osteoarthritis of the Esther Ortiz MD Active shoulder region Family History Date Family Member(s) Problem(s) Comments General Pt is adopted Biological mom did not have cardiac issues Father due to Unknown Causes () Mother due to Unknown Causes () Social History Type Date Description Comments Marital Status Lives With Spouse Lives With 08/22/2017 Daughters 14 and 16 2017 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 take with food (rare use) Tramadol HCL 03/15/ Active Tablets 50mg 20tab 1 tablet Zaneb 2017 s by mouth Yaseen, every 6 MD hours as needed pain Lamictal XR 09/08/ Active Tablets ER 100mg 180ta take 2 by Ankita 2012 24HR bs mouth Cowdery, every M.D. night at bedtime Protonix 11/16/ Active Tablets DR 40mg 30tab 1 po qd Zachary 2010 jessica Resendez M.D. Norvasc 06/26/ Active Tablets 2.5mg 30tab 1 po qd Zachary 2003 jessica Resendez M.D. Folic Acid 03/28/ Active Tablets 1mg 90tab 1 po bid Zachary 2002 s Kate Resendez M.D. Viagra 03/28/ Active Tablets 100mg 1/2 po Zachary 2003 prn Kate Resendez M.D. Aspirin / Active Tablets DR 81mg 50tab 1 po qd Unknown 0000 s Celexa / Active Tablets 10mg 1 + 1/2 Zachary 0000 by mouth FAngel every day Darinel Resendez Flonase Allergy / Active Suspension 50mcg/Act spray 1 Unknown Relief 0000 spray in each nostril daily Ativan 00// Active Tablets 1mg take 1/4 Unknown 0000 - 1/2 tab prn (very rare use) Potassium / Active Tablets ER 15Meq 1 po bid Unknown Citrate ER 0000 (1620 mg) Chlorthalidone / Active Tablets 50mg 1 by Unknown 0000 mouth every day Percocet 04/03/ Hx Tablets 5-325mg 40tab 1 tabs by Esther 2017 - s mouth Angel, 04/06/ every 4-6 MD 2018 hours as needed pain Keflex 04/03/ Hx Capsules 500mg 12cap take 1 Esther 2017 - tab by Angel, 04/06/ mouth MD 2018 four times a day x 3 days Percocet 04/28/ Hx Tablets 5-325mg 30tab 1 po Flaco 2011 - q4-6h prn Siva 10/23/ pain M.D. 2013 Lamictal 11/16/ Hx Tablets 100mg 90tab 1 po bid Zachary 2010 - F. 09/08/ Dipti, 2012 M.D. Celexa 11/16/ Hx Tablets 20mg 30tab 1 po qd Zachary 2010 - . 12/11/ Dipti, 2015 M.D. Juice Plus Fibre 11/16/ Hx Liquid 1.5Grams 1 Zachary 2010 - . 12/11/ per day Dipti, 2015 M.D. Antibiotic [...] doses total. replace q 6 months Nasonex 16/ Hx Suspension 50mcg 2 Sprays Zachary Intranasal [place] 2002 - Each . 12/11/ Nostril Dipti, 2015 prn M.D. Ibuprofen 16/ Hx Tablets 200mg prn Zachary 2002 - F. 10/23/ Dipti, 2012 M.D. Claritin 03/28/ Hx Capsules 10mg 30cap 1 tablet Zachary 2002 - daily prn F. 10/23/ Jeffrey, 2012 M.D. Ativan 03/28/ Hx Tablets 1mg 1 po q 6 Zachary 2003 - hr prn F. 12/02/ Dipti, 2010 M.D. Wellbutrin SR 03/27/ Hx Tablets 150mg 60tab 1 po bid Zachary 2003 - s F. 11/16/ Dipti, 2010 M.D. Ibuprofen 00/ Hx Tablets 200mg 1 tab po Unknown 0000 - prn 2017 Vital Signs Date Vital Result Comment 04/25/2018 Height 68 inches 5'8" Weight 183.75 lb with shoes Heart Rate 95 /min BP Systolic Sitting 124 mmHg BP Diastolic Sitting 88 mmHg O2 % BldC Oximetry 95 % at rest on room air BMI (Body Mass Index) 27.9 kg/m2 Ejection Fraction 55-60% 08-24-2017 04/14/2018 Height 68 inches 5'8" Weight 185.00 lb BP Systolic 128 mmHg BP Diastolic 70 mmHg Respiratory Rate 18 /min Body Temperature 97.1 F Pain Level 1 BMI (Body Mass Index) 28.1 kg/m2 03/14/2018 Height 68 inches 5'8" Weight 185.00 lb BP Systolic 126 mmHg BP Diastolic 80 mmHg Respiratory Rate 18 /min Pain Level 2 BMI (Body Mass Index) 28.1 kg/m2 02/23/2018 Height 68 inches 5'8" Weight 185.00 lb Heart Rate 78 /min BP Systolic 146 mmHg BP Diastolic 80 mmHg Respiratory Rate 12 /min Pain Level 8 BMI (Body Mass Index) 28.1 kg/m2 08/22/2017 Height 69 inches 5'9" Weight 190.00 lb w/shoes Heart Rate 96 /min BP Systolic 140 mmHg L/Arm Reg Cuff BP Diastolic 80 mmHg L/Arm Reg Cuff BP Systolic Sitting 139 mmHg la repeat sitting BP Diastolic Sitting 82 mmHg la repeat sitting BMI (Body Mass Index) 28.1 kg/m2 Ejection Fraction 60% 07/05/2008 04/27/2017 Height 69 inches 5'9" Weight 182.00 lb Heart Rate 77 /min BP Systolic Sitting 120 mmHg BP Diastolic Sitting 82 mmHg Respiratory Rate 16 /min BMI (Body Mass Index) 26.9 kg/m2 12/17/2015 Height 69 inches 5'9" Weight 180.00 lb Heart Rate 68 /min BP Systolic Sitting 122 mmHg BP Diastolic Sitting 88 mmHg Respiratory Rate 16 /min BMI (Body Mass Index) 26.6 kg/m2 12/19/2014 Height 69 inches 5'9" Weight 180.00 lb Heart Rate 80 /min BP Systolic Sitting 142 mmHg BP Diastolic Sitting 90 mmHg Respiratory Rate 16 /min BMI (Body Mass Index) 26.6 kg/m2 10/22/2013 Height 69 inches 5'9" Weight 186.38 lb Heart Rate 76 /min BP Systolic Sitting 122 mmHg BP Diastolic Sitting 88 mmHg Respiratory Rate 16 /min BMI (Body Mass Index) 27.5 kg/m2 10/23/2012 Heart Rate 72 /min BP Systolic Sitting 120 mmHg BP Diastolic Sitting 84 mmHg Respiratory Rate 20 /min 03/02/2012 Height 69 inches 5'9" Weight 180.00 lb Heart Rate 74 /min BP Systolic 141 mmHg BP Diastolic 104 mmHg BMI (Body Mass Index) 26.6 kg/m2 12/02/2010 Height 69 inches 5'9" Weight 184.00 lb Heart Rate 80 /min BP Systolic Sitting 134 mmHg BP Diastolic Sitting 106 mmHg BMI (Body Mass Index) 27.2 kg/m2 03/31/2005 Height 69 inches 5'9" Weight 175.00 lb Heart Rate 73 /min BP Systolic Sitting 124 mmHg L BP Diastolic Sitting 94 mmHg L BP Systolic Standing 130 mmHg R BP Diastolic Standing 100 mmHg R BMI (Body Mass Index) 25.8 kg/m2 06/26/2003 Height 69 inches Weight 186.00 lb Heart Rate 80 /min BP Systolic Sitting 140 mmHg BP Diastolic Sitting 100 mmHg BP Systolic Standing 140 mmHg BP Diastolic Standing 104 mmHg BMI (Body Mass Index) 27.5 kg/m2 05/23/2003 Height 69 inches Weight 192.00 lb Heart Rate 84 /min BP Systolic Sitting 120 mmHg BP Diastolic Sitting 84 mmHg BP Systolic Standing 130 mmHg BP Diastolic Standing 90 mmHg BMI (Body Mass Index) 28.4 kg/m2 05/23/2003 Height 69 inches Weight 192.00 lb Heart Rate 84 /min BP Systolic Sitting 120 mmHg BP Diastolic Sitting 84 mmHg BP Systolic Standing 140 mmHg BP Diastolic Standing 100 mmHg BMI (Body Mass Index) 28.4 kg/m2 03/28/2003 Height 69 inches Weight 191.00 lb Heart Rate 77 /min BP Systolic Sitting 120 mmHg BP Diastolic Sitting 80 mmHg BP Systolic Standing 126 mmHg BP Diastolic Standing 90 mmHg BMI (Body Mass Index) 28.2 kg/m2 Results Test Date Test Result H/L Range Note Total Protein 24HR Urine 12/22/2015 Urine Collection Time 24 Urine Total Volume 2800 mL Urine Random Total Protein < 6 mg/dL Urine Total Protein/24HR (SEE NOTE) mg/24Hr 0-165 1 Creatinine Clearance 12/22/2015 Creatinine 1.14 mg/dL High 0.51-0.95 Urine Collection Time 24 Urine Total Volume 2800 mL Urine Random Creatinine 63.71 mg/dL Creatinine Clearance 109 mL/min 97-137 Liver Function Panel 12/22/2015 Direct Bilirubin 0.10 mg/dL 0.03-0.18 Indirect Bilirubin 1.0 mg/dL 0.3-1.0 Lipid Profile (Trig/Chol/HDL) 12/22/2015 Triglycerides 66 mg/dL 2 Cholesterol 170 mg/dL 3 HDL Cholesterol 42.6 mg/dL 4 LDL Cholesterol 114 mg/dL 5 Comp Metabolic Panel 12/22/2015 Sodium 138 mmol/L 133-145 Potassium 3.6 mmol/L 3.5-5.0 Chloride 105 mmol/L 101-111 Co2 Carbon Dioxide 27 mmol/L 22-32 Anion Gap 6 mmol/L 2-11 Glucose 94 mg/dL 70-100 Blood Urea Nitrogen 22 mg/dL 6-24 Creatinine 1.15 mg/dL 0.67-1.17 One Over Creatinine 0.80 mg/dL 0.67-1.17 BUN/Creatinine Ratio 19.1 8-20 Calcium 8.9 mg/dL 8.6-10.3 Total Protein 6.4 g/dL 6.4-8.9 Albumin 4.0 g/dL 3.2-5.2 Globulin 2.4 g/dL 2-4 Albumin/Globulin Ratio 1.7 1-3 Total Bilirubin 1.10 mg/dL High 0.2-1.0 Alkaline Phosphatase 62 U/L 34-104 Alt 19 U/L 7-52 Ast 15 U/L 13-39 Egfr Non- 67.3 >60 Egfr 86.6 >60 6 Laboratory test finding 12/22/2015 Lamotrigine (Lamictal) 4.8 g/mL 2.5 - 15.0 7 Laboratory test finding 01/09/2015 Lamotrigine (Lamictal) 4.7 g/mL 2.5 - 15.0 8 Laboratory test finding 10/22/2013 Lamotrigine 4.5 g/mL 2.5 - 15.0 9 Laboratory test finding 10/03/2012 Lamotrigine 4.8 g/mL 2.5 - 15.0 10 Cath Panel 11/16/2010 PTT (Aptt) 28.2 25.15-38.53 CBC With Manual Diff 11/16/2010 White Blood Count 8.7 CUMM 4.8-10.8 Red Cell Count 4.92 CUMM 4.6-6.2 Hemoglobin [...] RBC Morphology NORMAL Basic Metabolic Panel 11/16/2010 Sodium 137 mmol/L 135-145 Potassium 4.2 mmol/L 3.5-5.0 Chloride 106 mmol/L 101-111 Co2 (Carbon Dioxide) 26.0 mmol/L 22-32 Anion Gap 5.0 mmol/L 2-11 11 Glucose 96 mg/dL 70-100 BUN 19 mg/dL 6-24 Creatinine 1.10 mg/dL 0.50-1.40 One Over Creatinine 0.90 BUN/Creatinine Ratio 17.3 8-20 Calcium 9.2 mg/dL 8.1-9.9 eGFR Non- 72.4 > 60 eGFR 93.1 > 60 12 Protime 11/16/2010 Inr 1.02 0.82-1.17 13 Protime 12.1 SEC 10.2-14.8 14 1 Unable [...] <15 (or dialysis) 7 Test Performed by: [place] [address] Sales Data Analyst: Ángel Chi II, M.D., Ph.D. 8 Test Performed by: [place] [address] Sales Data Analyst: Ángel Chi II, M.D., Ph.D. 9 Test Performed by: [place] [address] Sales Data Analyst: Jun Velazco III, M.D. 10 Test Performed by: [place] [address] Sales Data Analyst: Jun Velazco III, M.D. 11 Anion [...] ON THE INR VALUE ALONE. Procedures Date CPT Code Description Status 04/25/2018 81945 EKG Tracing & Interpretation Completed 04/03/2018 50084 Arthroscopy Shoulder,W/Rotator Cuff Repair Completed 04/03/2018 46673 Arthroscopy Shoulder,W/Rotator Cuff Repair Completed 04/03/2018 17566 Arthroscopy,Shoulder Decompression Of Subacromial Space Completed W/Acromio 04/03/2018 12549 Arthroscopy,Shoulder Decompression Of Subacromial Space Completed W/Acromio 08/24/2017 68991 ECHO Transthoracic, Real-Time 2D With Doppler And Color Completed Flow 08/24/2017 85553 ECHO Transthoracic, Real-Time 2D With Doppler And Color Completed Flow 08/22/2017 26269 EKG Tracing & Interpretation Completed 05/03/2012 69063 Arthroscopy,Shoulder Decompression Of Subacromial Space Completed W/Acromio 05/03/2012 19029 Arthroscopy,Shoulder Decompression Of Subacromial Space Completed W/Acromio 05/03/2012 22235 Arthroscopy Shoulder,W/Rotator Cuff Repair Completed 05/03/2012 22650 Arthroscopy Shoulder,W/Rotator Cuff Repair Completed 03/02/2012 30093 Rad Shoulder Comp, Min. 2 Views Completed 03/02/2012 62996 Rad Shoulder Comp, Min. 2 Views Completed 11/19/2010 68212 Left Heart Cath. Incl S/I Coronaries, Angio S/I V Gram Completed If Done 11/16/2010 93007 ECHO Stress Test Incl Perf Contiuous ekg Monitoring Completed W/Phys Superv 07/05/2008 47644 ECHO Transthorasic Realtime 2D W Doppler & Color Flow Completed Hosp 04/26/2005 08630 EKG, Interpretation Only Completed 03/31/2005 16130 EKG Tracing & Interpretation Completed 04/12/2003 41240 ECHO/Stress Completed 04/12/2003 26465 Stress Test Completed 04/01/2003 70652 EKG Tracing & Interpretation Completed Encounters Type Date Location Provider CPT E/M Dx Office Visit 03/14/2018 [facility] [place] [address] M75.122 9:45a [facility] Office Visit 02/23/2018 [facility] [place] [address] S46.012D 10:30a [facility] S46.012A Office Visit 08/22/2017 3:00p [facility] Zachary Resendez M.D. 62445 I10 R94.31 I47.1 I44.7 Z01.810 H90.5 Office Visit 04/27/2017 11:30a [facility] Ankita Vera M.D. 34394 G40.209 [facility] Office Visit 12/17/2015 8:30a [facility] Ankita Vera M.D. 52435 G40.209 [facility] Office Visit 12/19/2014 9:30[place] [address] 345.40 [facility] Office Visit 10/22/2013 8:30a [facility] Ankita Vera M.D. 74531 345.40 [facility] 585.9 Office Visit 12/21/2012 1:15p [facility] Eugenia Almanza 70372 840.4 [facility] RPA-C Office Visit 10/23/2012 8:15a [facility] Ankita Vera 10902 345.40 [facility] Sharifa.Nella 585.9 Office Visit 10/05/2012 9:45a [facility] Paniagua M.D. 38856 840.4 [facility] Office Visit 10/02/2012 9:30a [facility] Ankita Vera 48256 345.40 [facility] Sharifa.DAngel 585.9 401.9 Office Visit 04/07/2012 9:15a [facility] P[place]agua M.D. 71385 840.4 [facility] Office Visit 03/02/2012 2:30p [facility] M.D. 97558 840.8 C.M.Alma 840.8 Office Visit 12/02/2010 2:40p [facility] Hoa Calixto D.O. 74830 401.1 414.01 585.9 Office Visit 06/21/2006 2:00p [facility] Ollie SkaggsAngel Pope, 24587 805.2 Of [facility] Office Visit 03/31/2005 8:40a [facility] Zachary Love 48947 786.50 Dar[place] Resendez 427.0 401.0 Office Visit 04/12/2003 2:00p [facility] Zachary Resendez 40948 786.59 MAngelDAngel 401.1 Office Visit 04/01/2003 2:20p [facility] Zachary Resendez 52871 786.59 M.DAngel Plan of Care Future Appointment(s):05/16/2018 9:30 am - Esther Ortiz MD [facility]06/16/2018 10:00 am - Ankita Vera M.D. at [facility]04/25/2018 - Zachary Resendez M.D.I34.0 Nonrheumatic mitral (valve) [id number] Abnormal electrocardiogram [ECG ] [EKG]I77.810 Thoracic aortic ectasiaFollow up:ov 18 m
[2018-05-20] MEDS ORDERED: Ondansetron INJ* 2 MG/ML VIAL IV ONE (16:39)
[2018-05-20] MEDS ORDERED: fentaNYL* 50 MCG/ML 2 ML VIAL (100 MCG VIAL) IV SLOW PU ONE (16:39)
[2018-05-20 17:09] LABS: ABS Basophils 0.1 10^3/ul (0-0.2); ABS Eosinophils 0.1 10^3/ul (0-0.6); ABS Lymphocytes 2.4 10^3/ul (1.0-4.8); ABS Monocytes 0.6 10^3/ul (0-0.8); ABS Neutrophils 5.7 10^3/ul (1.5-7.7); ABS Nucleated RBC 0 10^3/ul; Eosinophil % 1.4 %; Hematocrit 44 % (42-52); Hemoglobin 15.1 g/dl (14.0-18.0); Lymphocyte % 27.4 %; Mean Corpuscular HGB Conc 35 g/dl (31-36); Mean Corpuscular Hemoglobin 30 pg (27-31); Mean Corpuscular Volume 87 fL (80-94); Nucleated Red Blood Cells % 0.2; Platelet Count 322 10^3/ul (150-450); Red Blood Count 5.01 10^6/ul (4.00-5.40); Red Cell Distribution Width 13 % (10.5-15); White Blood Count 8.9 10^3/ul (3.5-10.8)
[2018-05-20 17:10] LABS: Urine Appearance Clear; Urine Blood Negative (Negative); Urine Color Yellow; Urine Ketones Trace (Negative); Urine Protein Negative (Negative); Urine Specific Gravity 1.014 (1.010-1.030); Urine Urobilinogen Negative (Negative)
[2018-05-20 17:27] LABS: EGFR Non-African American 63.3 (>60)
--- NOTE | 2018-05-20 17:31 | ED ---
Syncope/Near Syncope - HPI Summary HPI Summary: A 53 y/o male presents to the ED s/p unwitnessed syncopal episode. Currently, the patient does have left shoulder pain reaching 5/10 in severity along with a headache and some head pain. In the ED room, the patient has a pulse of 87 BPM, O2 saturation of 96%, and blood pressure of 142/100. As per triage, "was found on kitchen floor by . patient remembers going into kitchen, but does not remember falling. c/o posterior headache. recent weight loss, possible ulcer. recent rotator cuff surgery". According to the patient, he remembers going into the kitchen by the sink and he felt a little bit of lightheadedness, but nothing crazy. The neck thing he remembered is his nudging him and he was startled. He noted that he did hit his head, but he has more of a headache than the back of his head hurting. He stated that this has never happened before, except when he had a non-diagnosed seizure episode where he chewed up his tongue. Denies any CP, palpitations or SOB. PMHx of no cardiac history, full reconstruction of rotator cuff. Allergies include hydrocodone (ends up itching) . SHx of no recreational drugs (quit smoking marijuana), occasional ETOH, no cigarettes. It was noted that the did not witness the fall, she was at home for about 10 minutes and found him unconscious on the kitchen floor. Patient takes several medications. - History Of Current Complaint Chief Complaint: EDSyncope Time Seen by Provider: 05/20/18 16:14 Onset/Duration: Sudden Onset, Lasting Minutes, Resolved Timing: Constant Context: Unwitnessed Activity At Onset: At Rest Associated Head Trauma: Yes Aggravating Factor(s): Nothing Alleviating Factor(s): Nothing Associated Signs And Symptoms: Headache, Lightheadedness, Pain - SHOULDER, LEFT - Allergies/Home Medications Allergies/Adverse Reactions: Allergies Allergy/AdvReac Type Severity Reaction Status Date / Time hydrocodone Allergy ITCH, Verified 05/20/18 15:57 BRAND NAME VICODIN IS OK PMH/Surg Hx/FS Hx/Imm Hx Endocrine/Hematology History: Denies: Hx Bone Marrow Disease, Hx Diabetes, Hx Sickle Cell Disease, Hx Thyroid Disease, Hx Anemia Cardiovascular History: Reports: Hx Hypertension - ON MEDICATION FOR Denies: Hx Pacemaker/ICD, Other Cardiovascular Problems/Disorders Respiratory History: Denies: Hx Asthma, Hx Chronic Obstructive Pulmonary Disease (COPD), Hx Sleep Apnea GI History: Reports: Hx Gastroesophageal Reflux Disease - on protonix Denies: Hx Cirrhosis, Hx Crohn's Disease, Hx Irritable Bowel, Hx Ulcer History: Reports: Hx Kidney Stones, Other Problems/Disorders - POLY CYSTIC DISEASE Denies: Hx Renal Disease Musculoskeletal History: Denies: Hx Arthritis, Hx Bursitis, Hx Tendonitis, Other Musculoskeletal History Sensory History: Denies: Hx Cataracts, Hx Contacts or Glasses, Hx Hearing Aid Opthamlomology History: Denies: Hx Cataracts, Hx Contacts or Glasses Neurological History: Denies: Hx Headaches, Hx Migraine, Hx Seizures - on lamictal for maybe possible seizure-10+ YEARS AGO Psychiatric History: Reports: Hx Anxiety - on medication for, Hx Depression - ON MEDICATION FOR Denies: Hx Panic Disorder - Cancer History Hx Chemotherapy: No - Surgical History Surgery Procedure, Year, and Place: CYST REMOVED FROM NECK AGE 5. APPENDECTOMY - ABOUT 10 YEARS AGO. SHOULDER SURGERY-LEFT. HERNIA REPAIR- INGUINAL- LEFT AND RIGHT- A CHILD. kidney stone surgery approx 3 years ago. RIGHT [id number]. RIGHT SHOULDER ROTATOR CUFF REPAIR Hx Anesthesia Reactions: Yes - EAR SURGERY- SOME ANESTHESIA SETTLED IN MUSCLES DIFF. WALKING FOR A 2-3 DAY Infectious Disease History: No Infectious Disease History: Denies: Hx Clostridium Difficile, Hx Hepatitis, Hx Human Immunodeficiency Virus (HIV), Hx of Known/Suspected MRSA, Hx Shingles, Hx Tuberculosis, Traveled Outside the [place] in Last 30 Days - Family History Known Family History: Positive: Hypertension Negative: Respiratory Disease, Seizure Disorder - Social History Alcohol Use: Occasionally Substance Use Type: Reports: Marijuana Substance Use Comment - Amount & Last Used: stopped smoking 2 weeks ago Smoking Status (MU): Never Smoked Tobacco Have You Smoked in the Last Year: No Review of Systems Negative: Fever Negative: Palpitations, Chest Pain Negative: Shortness Of Breath Neurological: Other - POSITIVE: LIGHTHEADEDNESS Positive: Headache, Syncope All Other Systems Reviewed And Are Negative: Yes Physical Exam - Summary Physical Exam Summary: GENERAL: Patient is a well-developed and nourished male who is lying comfortable in the stretcher. Patient is not in any acute respiratory distress. HEAD AND FACE: Normocephalic EYES: PERRLA, EOMI x 2. EARS: Hearing grossly intact. MOUTH: Oropharynx within normal limits. NECK: Supple, trachea is midline, no adenopathy, no JVD, no carotid bruit. CHEST: Symmetric, no tenderness at palpation LUNGS: Clear to auscultation bilaterally. No wheezing or crackles. CVS: Regular rate and rhythm, S1 and S2 present, no murmurs or gallops appreciated. ABDOMEN: Soft, non-tender. Bowel sounds are normal. No abdominal abnormal pulsations. EXTREMITIES: Full ROM in all major joints, no edema, no cyanosis or clubbing. Rotator cuff incision (left) is clean, dry, and intact. Tenderness to palpation on left shoulder. NEURO: Alert and oriented x 3. No acute neurological deficits. Speech is normal and follows commands. SKIN: Dry and warm GCS: 15 Triage Information Reviewed: Yes Vital Signs On Initial Exam: Initial Vitals Temp Pulse Resp BP Pulse Ox 98.8 F 91 16 146/106 98 05/20/18 15:53 05/20/18 15:53 05/20/18 15:53 05/20/18 15:53 05/20/18 15:53 Vital Signs Reviewed: Yes Diagnostics - Vital Signs Vital Signs Temp Pulse Resp BP Pulse Ox 05/20/18 16:56 18 05/20/18 15:53 98.8 F 91 16 146/106 98 - Laboratory Lab Results: Lab Results 05/20/18 05/20/18 Range/Units 16:15 16:59 WBC 8.9 (3.5-10.8) 10^3/ul RBC 5.01 (4.00-5.40) 10^6/ul Hgb 15.1 (14.0-18.0) g/dl Hct 44 (42-52) % MCV 87 (80-94) fL MCH 30 (27-31) pg MCHC 35 (31-36) g/dl RDW 13 (10.5-15) % Plt Count 322 (150-450) 10^3/ul MPV 8.0 (7.4-10.4) fL Neut % (Auto) 63.7 % Lymph % (Auto) 27.4 % Gilliam % (Auto) 6.7 % Eos % (Auto) 1.4 % Baso % (Auto) 0.8 % Absolute Neuts (auto) 5.7 (1.5-7.7) 10^3/ul Absolute Lymphs (auto) 2.4 (1.0-4.8) 10^3/ul Absolute Monos (auto) 0.6 (0-0.8) 10^3/ul Absolute Eos (auto) 0.1 (0-0.6) 10^3/ul Absolute Basos (auto) 0.1 (0-0.2) 10^3/ul Absolute Nucleated RBC 0 10^3/ul Nucleated RBC % 0.2 Urine Color Yellow Urine Appearance Clear Urine pH 7.0 (5-9) Ur Specific [place] 1.014 (1.010-1.030) Urine Protein Negative (Negative) Urine Ketones Trace A (Negative) Urine Blood Negative (Negative) Urine Nitrate Negative (Negative) Urine Bilirubin Negative (Negative) Urine Urobilinogen Negative (Negative) Ur Leukocyte Esterase Negative (Negative) Urine Glucose Negative (Negative) Result Diagrams: 05/20/18 16:59 05/21/18 05:01 Lab Statement: Any lab studies that have been ordered have been reviewed, and results considered in the medical decision making process. - Radiology CXR Radiology Interpretation Completed By: ED Physician - No radiographic evidence for acute cardiopulmonary abnormality on this portable chest x-ray. ED PHYSICIAN REVIEWED THIS RADIOLOGY REPORT. SHOULDER XR Radiology Interpretation Completed By: Radiologist - STABLE POSTSURGICAL CHANGES WITHOUT RADIOGRAPHICALLY APPARENT FRACTURE OR DISLOCATION. ED PHYSICIAN REVIEWED THIS RADIOLOGY REPORT. - CT CERVICAL SPINE CT CT Interpretation Completed By: Radiologist - No cervical spine fracture or other acute CT pathology. ED PHYSICIAN REVIEWED THIS RADIOLOGY REPORT. BRAIN CT CT Interpretation Completed By: Radiologist - 1. There is age-related diffuse cerebral and cerebellar volume loss and chronic microvascular ischemic disease. 2. No acute intracranial pathology. ED PHYSICIAN REVIEWED THIS RADIOLOGY REPORT. - EKG 1626 Cardiac Rate: NL - 81 BPM EKG Rhythm: Sinus Rhythm - 81 BPM EKG Comparison: Other - SIMILAR TO 07/05/2008 Summary of EKG Findings: NORMAL INTERVAL 1846 Cardiac Rate: NL - 85 BPM EKG Rhythm: Sinus Rhythm - 85 BPM Summary of EKG Findings: non-ischemic changes Course/Dx Course Of Treatment: A 53 y/o male presents to the ED s/p unwitnessed syncopal episode. Currently, the patient does have left shoulder pain reaching 5/10 in severity along with a headache and some head pain. In the ED room, the patient has a pulse of 87 BPM, O2 saturation of 96%, and blood pressure of 142/100. As per triage, "was found on kitchen floor by . patient remembers going into kitchen, but does not remember falling. c/o posterior headache. recent weight loss, possible ulcer. recent rotator cuff surgery". According to the patient, he remembers going into the kitchen by the sink and he felt a little bit of lightheadedness, but nothing crazy. The neck thing he remembered is his nudging him and he was startled. He noted that he did hit his head, but he has more of a headache than the back of his head hurting. He stated that this has never happened before, except when he had a non-diagnosed seizure episode where he chewed up his tongue. Denies any CP, palpitations or SOB. Physical examination revealed rotator cuff incision (left) is clean, dry, and intact. Tenderness to palpation on left shoulder. A CXR revealed no radiographic evidence for acute cardiopulmonary abnormality on this portable chest x-ray. A Cervical Spine CT revealed no cervical spine fracture or other acute CT pathology. A Brain CT revealed 1. There is age-related diffuse cerebral and cerebellar volume loss and chronic microvascular ischemic disease. 2. No acute intracranial pathology. GCS: 15. A Shoulder XR revealed Stable postsurgical changes without radiographically apparent fracture or dislocation. An EKG revealed NSR of 81 BPM, normal interval. Another EKG NSR 85 BPM, non- ischemic changes. Hematology and urinalysis were done. Labs were all within normal limits. Patient care was discussed with hospitalist, Dr. Mendoza, who accepts patient for admission. Patient will be admitted with a diagnosis of syncope. Patient is agreeable with this plan. - Diagnoses Provider Diagnoses: Syncope - Physician Notifications Discussed Care of Patient With: Levi Mendoza Time Discussed With Above Provider: 19:10 Instructed by Provider To: Other - Accepts patient for admission. Discharge - Sign-Out/Discharge Documenting (check all that apply): Patient Departure - ADMIT, Sign-Out Patient - CHECO Signing out patient TO: Levi Mendoza Receiving patient FROM: Angelic De La Rosa - Discharge Plan Condition: Stable Disposition: ADMITTED TO [facility] - Billing Disposition and Condition Condition: STABLE Disposition: Admitted to [facility] - Attestation Statements Document Initiated by Michael: Yes Documenting Scribe: Abundio Jacobson Provider For Whom Michael is Documenting (Include Credential): Angelic De La Rosa MD Scribe Attestation: Abundio Guerra, scribed for Angelic De La Rosa MD on 05/21/18 at 0752. Scribe Documentation Reviewed: Yes Provider Attestation: The documentation as recorded by the Abundio estrada accurately reflects the service I personally performed and the decisions made by me, Angelic De La Rosa MD Status of Scribe Document: Viewed
[2018-05-20] MEDS ORDERED: Potassium Chlor TAB* 20 MEQ TAB.ER PO ONE (18:28)
[2018-05-20] MEDS ORDERED: Acetaminophen TAB* 325 MG PO PRN (20:33)
[2018-05-20] MEDS ORDERED: oxyCODONE TAB* 5 MG TAB PO PRN (20:33)
[2018-05-20] MEDS ORDERED: QUEtiapine TAB* 25 MG PO PRN (20:35)
[2018-05-20] MEDS: Lisinopril TAB* 5 MG PO SCH (21:41)
[2018-05-20] MEDS: Citalopram TAB* 20 MG PO SCH (21:41)
[2018-05-20] MEDS: amLODIPine TAB* 5 MG PO SCH (21:41)
[2018-05-20] MEDS: lamoTRIgine TAB(*) 25 MG PO SCH (21:42)
[2018-05-20] MEDS: Potassium Citrate TAB (NF) 15 MEQ TABLET.ER PO SCH (21:42)
[2018-05-21 05:44] LABS: EGFR Non-African American 60.4 (>60)
[2018-05-21] MEDS: Potassium Citrate TAB (NF) 15 MEQ TABLET.ER PO SCH ×2 (08:24→20:50)
[2018-05-21] MEDS: lamoTRIgine TAB(*) 25 MG PO SCH ×2 (08:34→20:54)
[2018-05-21] MEDS: Lisinopril TAB* 5 MG PO SCH (08:34)
--- NOTE | 2018-05-21 10:22 | PN ---
Subjective Date of Service: 05/21/18 Interval History: Patient seen today, I was able to interview him myself and gather the history surrounding the event of his syncope myself. He states that he was heading to the kitchen in his house and felt very lightheaded and next thing he remember he woke up by his waking him up. He does not recall the time of the events but he was able to tell me that his was not at home when it happened. However, when his returned home she was home at least 10 minutes before she found him in the kitchen. [facility]. He denies any chest pain but he dose have pain in his left arm/shoulder and he contributes it to his rotator cuff surgery. No visible head trauma. CT head in the ER was negative for bleed. Patient was admitted for observation for Syncope! This morning patient is back at baseline and eager and wants to go home today Past Medical History: Unchanged from Admission Objective Active Medications: Acetaminophen (Tylenol Tab*) 650 mg PO Q4H PRN PRN Reason: FEVER/HEADACHE Last Admin: 05/20/18 21:40 Dose: 650 mg Amlodipine Besylate (Norvasc Tab*) 5 mg PO QPM PENDING SALE TO [facility] Last Admin: 05/20/18 21:41 Dose: 5 mg Aspirin (Aspirin 81 Mg Chew Tab*) 81 mg PO QPM GISELLE Chlorthalidone (Hygroton Tab*) 50 mg PO QPM GISELLE Citalopram Hydrobromide (Celexa Tab*) 30 mg PO BEDTIME GISELLE Last Admin: 05/20/18 21:41 Dose: 30 mg Folic Acid (Folvite Tab*) 2 mg PO QPM GISELLE Lamotrigine (Lamictal Tab(*)) 50 mg PO BID PENDING SALE TO [facility] Last Admin: 05/21/18 08:34 Dose: 50 mg Lisinopril (Prinivil Tab*) 5 mg PO DAILY PENDING SALE TO [facility] Last Admin: 05/21/18 08:34 Dose: 5 mg Oxycodone HCl (Roxycodone Tab*) 5 mg PO Q6H PRN PRN Reason: PAIN - MODERATE Last Admin: 05/20/18 21:41 Dose: 5 mg Pantoprazole Sodium (Protonix Tab (Nf)) 40 mg PO QPM GISELLE Potassium Citrate (Potassium Citrate Tab (Nf)) 15 meq PO BID PENDING SALE TO [facility] Last Admin: 05/21/18 08:24 Dose: Not Given Quetiapine Fumarate (Seroquel Tab*) 25 mg PO BEDTIME PRN PRN Reason: INSOMNIA Last Admin: 05/20/18 21:44 Dose: 25 mg Vital Signs - 8 hr 05/21/18 05/21/18 05/21/18 03:24 03:54 07:21 Temperature 98.0 F 98.0 F 98.1 F Pulse Rate 93 93 79 Respiratory 18 18 16 Rate Blood Pressure 113/82 113/82 124/81 (mmHg) O2 Sat by Pulse 96 96 94 Oximetry 05/21/18 08:00 Temperature Pulse Rate Respiratory 16 Rate Blood Pressure (mmHg) O2 Sat by Pulse Oximetry Oxygen Devices in Use Now: None Appearance: Awake, alert, no acute distress Eyes: No Scleral Icterus, PERRLA, - - EOMI Ears/Nose/Mouth/Throat: NL Teeth, Lips, Gums, Clear Oropharnyx, Mucous Membranes Moist Neck: NL Appearance and Movements; NL JVP, Trachea Midline Respiratory: Symmetrical Chest Expansion and Respiratory Effort, Clear to Auscultation Cardiovascular: NL Sounds; No Murmurs; No JVD, RRR, No Edema Abdominal: NL Sounds; No Tenderness; No Distention Extremities: No Edema Skin: No Rash or Ulcers Neurological: Alert and Oriented x 3, NL Muscle Strength and Tone Result Diagrams: 05/20/18 16:59 05/21/18 05:01 Additional Lab and Data: Lab Results 05/20/18 05/20/18 Range/Units 16:15 16:59 WBC 8.9 (3.5-10.8) 10^3/ul RBC 5.01 (4.00-5.40) 10^6/ul Hgb 15.1 (14.0-18.0) g/dl Hct 44 (42-52) % MCV 87 (80-94) fL MCH 30 (27-31) pg MCHC 35 (31-36) g/dl RDW 13 (10.5-15) % Plt Count 322 (150-450) 10^3/ul MPV 8.0 (7.4-10.4) fL Neut % (Auto) 63.7 % Lymph % (Auto) 27.4 % Glenn % (Auto) 6.7 % Eos % (Auto) 1.4 % Baso % (Auto) 0.8 % Absolute Neuts (auto) 5.7 (1.5-7.7) 10^3/ul Absolute Lymphs (auto) 2.4 (1.0-4.8) 10^3/ul Absolute Monos (auto) 0.6 (0-0.8) 10^3/ul Absolute Eos (auto) 0.1 (0-0.6) 10^3/ul Absolute Basos (auto) 0.1 (0-0.2) 10^3/ul Absolute Nucleated RBC 0 10^3/ul Nucleated RBC % 0.2 Urine Color Yellow Urine Appearance Clear Urine pH 7.0 (5-9) Ur Specific [place] 1.014 (1.010-1.030) Urine Protein Negative (Negative) Urine Ketones Trace A (Negative) Urine Blood Negative (Negative) Urine Nitrate Negative (Negative) Urine Bilirubin Negative (Negative) Urine Urobilinogen Negative (Negative) Ur Leukocyte Esterase Negative (Negative) Urine Glucose Negative (Negative) Assess/Plan/Problems-Billing Assessment: 53 y/o male history of HTN and seizure was admitted for syncopal episode - Patient Problems (1) Syncope Current Visit: Yes Status: Acute Code(s): R55 - SYNCOPE AND COLLAPSE SNOMED Code(s): 375835363 Comment: - His history is vague but does appear to be a breakthrough seizure. I discussed with Dr. Brothers who will kindly see the patient for recommendations. I appreciate his input so far to discontinue his seroquel at home. I will hold off on drawing lamictal level now as he was already given his morning medciations. Also after reviewing his outpatient [facility] Rx he does have previous prescriptions of tramadol (patient states he does not take them anymore)! - I will follow up with Dr. Brothers full recommendations and will discharge accordingly - I also spoke to Dr. Schulte for evaluation given his previous history of chest pain, and now equivocal Troponin (2) Seizure Current Visit: Yes Status: Acute Code(s): R56.9 - UNSPECIFIED CONVULSIONS SNOMED Code(s): 82997303 Comment: - His history is vague but does appear to be a breakthrough seizure. I discussed with Dr. Brothers who will kindly see the patient for recommendations. I appreciate his input so far to discontinue his seroquel at home. I will hold off on drawing lamictal level now as he was already given his morning medciations. Also after reviewing his outpatient [facility] Rx he does have previous prescriptions of tramadol (patient states he does not take them anymore)! - I will follow up with Dr. Brothers full recommendations and will discharge accordingly (3) Elevated troponin Current Visit: Yes Status: Acute Code(s): R74.8 - ABNORMAL LEVELS OF OTHER SERUM ENZYMES SNOMED Code(s): 685869118 Comment: - EKG from ER no acute changesl. Good R wave progression. Sinus rhtym - I also spoke to Dr. Schulte for evaluation given his previous history of chest pain, and now equivocal Troponin. (4) Hypertension Current Visit: Yes Status: Acute Code(s): I10 - ESSENTIAL (PRIMARY) HYPERTENSION SNOMED Code(s): 53308436 Comment: - on Amlodipine 5 mg daily will continue, and lisinopril 5 mg daily (5) Shoulder pain Current Visit: Yes Status: Acute Code(s): M25.519 - PAIN IN UNSPECIFIED SHOULDER SNOMED Code(s): 95104632 Comment: on Percocet and he was told to stop his tramadol at home (6) Insomnia Current Visit: Yes Status: Acute Code(s): G47.00 - INSOMNIA, UNSPECIFIED SNOMED Code(s): 226546532 Comment: - on Seroquel, Will discontinue seroquel as per neurology recommendation as it does lower seizure treshold. Will place him on trazodone 50 mg HS PRN (7) Hypokalemia Current Visit: Yes Status: Acute Code(s): E87.6 - HYPOKALEMIA SNOMED Code( s): 38826839 Comment: could be due to chlorthalidone 50 mg daily. Supplemented his K+ (8) DVT prophylaxis Current Visit: Yes Status: Acute Code(s): BZN4630 - SNOMED Code(s): 364855413 Comment: will start lovenox 40
[2018-05-21] MEDS ORDERED: traZODone TAB* 50 MG TAB PO PRN (11:32)
[2018-05-21] MEDS: Enoxaparin(*) 40 MG/0.4 ML SYR SUBCUT SCH (12:34)
--- NOTE | 2018-05-21 13:12 | ECHO ---
Patient: NICANOR ALVES [facility] Rec#: [id number] : 1965 Date: 05/21/2018 Age: 53y Height: 175 cm / 68.9 in Weight: 82 kg / 180.7 lbs Sex: M BSA: 1.98 Room#: 432 Admit Date#: 05/20/2018 Type: Inpatient Referring: Deyanira Dhillon MD Reading: Deyanira Dhillon MD Medical Office Administrator: Ankita Perales,RDCS,RDMS CC: Kristian Bell MD Transthoracic Echocardiogram Indication: Syncope BP: 124/87 HR: 75 Rhythm: NSR Findings History: HTN, AOV insuffiecincy Technical Comments: The study quality is good. Left Ventricle: The left ventricular chamber size is normal. The estimated ejection fraction is 55-60%. Closer to 55%. Normal left ventricular diastolic filling is observed. Left Atrium: The left atrial chamber size is normal. Right Ventricle: The right ventricular chamber size and systolic function are within normal limits. Right Atrium: The right atrial cavity size is normal. Aortic Valve: The aortic valve is trileaflet. Systolic excursion of the aortic valve is normal. There is mild aortic regurgitation. There is no evidence of aortic stenosis. Mitral Valve: The mitral valve leaflets are mildly thickened. There is trace to mild mitral regurgitation. There is no evidence of mitral stenosis. Tricuspid Valve: The tricuspid valve leaflets are normal. There is trace tricuspid regurgitation. Unable to estimate the right ventricular systolic pressure. Pulmonic Valve: The pulmonic valve appears normal. There is a trace pulmonic regurgitation. Pericardium: There is no significant pericardial effusion. Aorta: There is mild dilatation of the ascending aorta. There is mild dilatation of the aortic arch. There is mild dilatation of the aortic root. Pulmonary Artery: The main pulmonary artery appears normal. Venous: The inferior vena cava appears normal in size. There is a greater than 50% respiratory change in the inferior vena cava dimension. Summary: There are no significant changes when compared to the previous study done on 08/24/2017 Conclusions The left ventricular chamber size is normal. The estimated ejection fraction is 55-60%. Closer to 55%. There is mild aortic regurgitation. There is trace to mild mitral regurgitation. There is trace tricuspid regurgitation. Unable to estimate the right ventricular systolic pressure. There is mild dilatation of the ascending aorta. There is mild dilatation of the aortic arch. There is mild dilatation of the aortic root. Measurements Name Value Normal Range RVIDd (AP) 2D 2.8 cm (0.9 - 2.6) RVDdMajor (2D) 2.7 cm (2.2 - 4.4) RAd ISD 4CH 4 cm (3.4 - 4.9) RA (A4C)W 3.5 cm (2.9 - 4.6) IVSd (2D) 1.1 cm (0.6 - 1) LVPWd (2D) 1 cm (0.6 - 1) LVIDd (2D) 5 cm (3.6 - 5.4) LVIDs (2D) 2.9 cm - LV FS (2D) 41 % (25 - 45) Aortic Annulus 2.4 cm (1.4 - 2.6) Ao root diameter (2D) 4 cm (2.1 - 3.5) Ascending Ao 3.7 cm (2.1 - 3.4) Aortic arch 3.7 cm (1.8 - 3.4) LA dimension (AP) 2D 3.2 cm (2.3 - 3.8) LAd ISD 4CH 4.2 cm (2.9 - 5.3) LA ISD 4CH W 4.2 cm (2.5 - 4.5) Name Value Normal Range LA ESV BP (A/L) index 23 ml/m2 - Name Value Normal Range MV E-wave Vmax 0.8 m/sec - MV deceleration time 185 msec - MV A-wave Vmax 0.6 m/sec - MV E:A ratio 1.3 ratio - P. vein S-wave Vmax 0.5 m/sec - P. vein D-wave Vmax 0.3 m/sec - P. vein S:D Vmax ratio 1.8 ratio - P. vein A-wave duration 111 msec - LV septal e' Vmax 0.09 m/sec - LV lateral e' Vmax 0.13 m/sec - LV E:e' septal ratio 9 ratio - LV E:e' lateral ratio 6 ratio - Name Value Normal Range AV Vmax 1.4 m/sec - AV VTI 28 cm - AV peak gradient 8 mmHg - AV mean gradient 4 mmHg - LVOT Vmax 0.9 m/sec - LVOT VTI 16 cm - LVOT peak gradient 3.2 mmHg - LVOT mean gradient 2 mmHg - AR PHT 513 msec - BILLIE Vmax 0.7 m/sec - Name Value Normal Range RAP 8 mmHg - IVC diameter 1.4 cm - Name Value Normal Range PV Vmax 0.7 m/sec - PV peak gradient 2 mmHg -
--- NOTE | 2018-05-21 14:48 | CONS ---
CC: Dr. Aquino; Hospitalist Service; Dr. Resendez; Dr. Dhillon; Dr. Bell * CARDIOLOGY CONSULT: DATE OF CONSULT: 05/21/18 HISTORY OF PRESENT ILLNESS: I was asked by Dr. Aquino from the hospitalist service to see this 53-year-old male patient, who presented to the hospital with syncopal episode after he was found by his to be on the floor of unknown duration of probably for about half an hour. The patient follows up with Dr. Resendez, last visit with Dr. Resendez was 04/25/18. He does have known history of systemic arterial hypertension, he takes Norvasc 2.5 mg daily. He gives no history of congestive heart failure. No diabetes mellitus. He gives no history of myocardial infarction. No coronary artery disease. He states he has been having shoulder pain. He had recently rotator cuff surgery on the left side. He was sitting at home about 3 o'clock in the afternoon yesterday, Tuesday. Today Tuesday watching TV, he stood up and then he went to the kitchen and then he does not remember anything. When he stood up, he felt dizzy and about to faint. He had no symptoms of chest pain. No skipping. No palpitations. No fast heart rate. His found him on the floor when she got back home. Unknown duration how long he was on the floor. I was called because of his syncope and because of abnormal troponin. His first troponin at 5 o'clock yesterday p.m. 0. Second troponin after 4 hours 0 and then at midnight was 0.19 and then it did go back to 0. We are questioning the accuracy of the 0.19 troponin because of the rest of the 3 troponins, all of them were 0. The patient never had symptoms of chest pain. No shortness of breath. No orthopnea. No PND. No swelling in the lower extremities. No fevers. No chills. No cold symptoms. No nausea. No vomiting. No abdominal pain is appreciated. PAST MEDICAL HISTORY: Includes systemic arterial hypertension and history of high stress level, history of SVT, history of negative cath in 2010, history of stress test in 2010 for atypical chest pain that was negative, history of possible seizures. PAST SURGICAL HISTORY: Hernia repair, rotator cuff surgery on the shoulders, appendectomy. ALLERGIES: He is allergic to DILTIAZEM and HYDROCODONE. FAMILY HISTORY: No family history of premature coronary artery disease. SOCIAL HISTORY: He is , lives with his . No smoking. He drinks alcohol occasionally. No history of illicit drug use. REVIEW OF SYSTEMS: Review of all other systems essentially is negative. PHYSICAL EXAM: He is awake, alert, and oriented. He is in no acute distress. His vitals include, blood pressure of 124/81, pulse 79, sinus rhythm. No evidence of significant pauses or dropped beat or AV block. Head and Neck Exam : Normocephalic, atraumatic head. Ears, nose, and throat essentially benign. Neck is supple. JVP is not elevated. No carotid bruits. No masses in the neck is appreciated. Chest: Clear to auscultation. No rales. No wheezes. No added sound is appreciated. Heart: Normal. S1, S2. No added sounds. No gallops. No rubs. Abdomen: Benign, soft. Positive bowel sounds. Extremities : No edema. No cyanosis, no clubbing. Skin Exam: Normal. Psych: Normal affect and mood. RESEARCH PROGRAM COORDINATOR: No focal deficit appreciated. DIAGNOSTIC STUDIES/LAB DATA: His labs include the following: Sodium 137, potassium was 3 to 3.4 now, chloride 104, total CO2 of 27, BUN 19, creatinine 1.25. LFTs normal. Troponins as described. TSH normal. T4 normal. His D- dimer less than 200. His white blood cell 8.9, hemoglobin 15.1, hematocrit 44, and platelets 322,000. His EKG reported to be in sinus rhythm, heart rate 85 beats per minute, MN segment and QTc are normal. Nonspecific T-wave abnormality. He had evaluation with x-rays, a chest x-ray, shoulder; a brain CT and the brain CT showed age related diffuse cerebral and cerebellar volume loss. No acute intracranial pathology. IMPRESSION: The patient is a 53-year-old male patient with: 1. Syncopal episode of unclear etiology. Circumstances are not immediately clear. 2. Systemic arterial hypertension. 3. History of mild aortic insufficiency and mild mitral insufficiency. 4. Nonspecific EKG abnormality. 5. Unknown current left ventricular systolic function. PLAN: This patient will be monitored for any arrhythmia or conduction abnormality. I had a lengthy talk with the patient and the hospitalist service. We will obtain an echo on his left ventricular systolic function or any organic or structural heart disease. We will obtain a nuclear Myoview stress test based on his comorbidities. He is to stay very well hydrated, aggressive replenishment of his potassium to keep it 4 or more, magnesium 2 or more. Follow him closely for any further episodes of dizziness or syncope. Continue monitoring him very closely as you are already doing. Any further recommendation will be pending his clinical outcome. I answered all his concerns and questions up to his satisfaction. We will follow him closely. Thank you very much for asking us to participate in the care of this patient. [id number]/[facility] #: [id number] ELADIO
[2018-05-21] MEDS: amLODIPine TAB* 5 MG PO SCH (17:49)
[2018-05-21] MEDS ORDERED: Folic Acid TAB* 1 MG PO SCH (18:00)
[2018-05-21] MEDS ORDERED: Aspirin 81 mg CHEW TAB* 81 MG TAB.CHEW PO SCH (18:00)
[2018-05-21] MEDS ORDERED: CMCS:Pantoprazole TAB (NF) 40 MG TAB PO SCH (18:00)
[2018-05-21] MEDS ORDERED: Chlorthalidone TAB* 50 MG PO SCH (18:00)
--- NOTE | 2018-05-21 18:18 | PN ---
Hospitalist Progress Note Date of Service: 05/21/18 I was paged by nursing staff that the patient wanted to sign AMA. He immediately volunteer that he is well aware of the risk to his health and his and was ready to sign AMA. I did explain to him that he also run the risk of having his hospitalization denied by his insurance carrier. At that time he was unhappy but he accepted to stay.
--- NOTE | 2018-05-21 19:01 | HP ---
CC: Dr. Bell; Dr. Vera * ADMISSION HISTORY AND PHYSICAL: DATE OF ADMISSION: 05/20/18. CHIEF COMPLAINT: Syncope. HISTORY OF PRESENT ILLNESS: Mr. Clark is a 53-year-old man, with a history of hypertension and distant history of seizure disorder, who was in his kitchen this evening when he felt lightheaded and then without warning he found himself on the floor. He did not have a witness, but his states that she came home and did not see him, did something for about 10 minutes and then found him unconscious on the floor. It seems that she was able to arouse him once she found him. There was no tongue biting. There was no urinary incontinence. He does state he hit his head, the back of his head was painful initially. His left shoulder was also painful and he has had a recent rotator cuff arthroscopy and repair of that same shoulder. There was no chest pain or palpations, or shortness of breath preceding or since this event. Eight to ten years ago, the patient had apparent seizure and was referred to Dr. Vera for evaluation. He had a second seizure around that time and was placed on Lamictal, which he has been compliant with since then. This event seems different to him because of the lack of tongue biting. PAST MEDICAL HISTORY: Includes hypertension, polycystic kidney disease, anxiety , and a history of seizure disorder as above. PAST SURGICAL HISTORY: Appendectomy; hernia repair, bilateral inguinal; left rotator cuff repair in March 2018; right rotator cuff repair in 2012; left shoulder labral tear repair in a more distant past; cyst removed on the right neck at age 5. MEDICATIONS ON ADMISSION: 1. Amlodipine 5 mg p.o. q.p.m. 2. Aspirin 81 mg p.o. daily. 3. Chlorthalidone 50 mg p.o. q.p.m. 4. Citalopram 30 mg p.o. q.h.s.. 5. Folic acid 2 mg p.o. q.p.m. 6. Ibuprofen 800 mg p.o. q.8 hours p.r.n. pain. 7. Lamotrigine XR 100 mg p.o. q.h.s. 8. Protonix 40 mg p.o. q.h.s. 9. Potassium citrate (Urocit K) 50 mEq p.o. b.i.d. 10. Seroquel 25 mg p.o. h.s. ALLERGIES: HYDROCODONE has caused itching in the past, but he has used it more recently without problem. FAMILY HISTORY: Limited because he is adopted. He was told that he had an aunt with polycystic kidney disease. 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 He is . He has 2 children. He does not smoke. Drinks alcohol occasionally. No recreational drugs other than marijuana, which he uses frequently. REVIEW OF SYSTEMS: The patient denies any fevers, weight loss, anorexia. The patient denies any chest pain or palpitations. The patient denies any shortness of breath, cough, hemoptysis. The patient denies any abdominal pain, nausea, vomiting, diarrhea, or constipation. Remainder of all 14-point review of systems negative other than mentioned in the HPI. PHYSICAL EXAMINATION GENERAL: He is alert, in no acute distress. VITAL SIGNS: Temperature is 37.1, pulse 85, respirations 20, blood pressure is 145/99, oxygen saturation is 95%. HEENT: Head is normocephalic, atraumatic. Sclerae anicteric. Pupils equal, round, and reactive to light and accommodation. Oropharynx is moist. No lesions. NECK: No JVD. No carotid bruit. No thyromegaly. LUNGS: Clear to auscultation and percussion bilaterally. HEART: Regular rate and rhythm without murmurs or gallops. ABDOMEN: Soft, nontender. Positive bowel sounds. No hepatosplenomegaly. EXTREMITIES: No peripheral edema. Dorsalis pedis pulses are 2+ bilaterally. NEUROLOGIC: Cranial nerves II through XII are intact. Motor strength is 5/5 throughout. Deep tendon reflexes are symmetric. He is alert and oriented x3. DIAGNOSTIC STUDIES/LAB DATA: Sodium 137, potassium 3.0, chloride 101, bicarb 26, BUN 17, creatinine is 1.2, glucose is 105, calcium 9.6, AST 14, ALT 17, TSH 1.01. BNP is 9. Troponin is 0.00. White count 8.9, hemoglobin 15.1, hematocrit 44%, and platelets are 322. INR 1.0, PTT 27.8. D-dimer is less than 200. EKG shows normal sinus rhythm, normal axis. No ischemic ST or T-wave changes. Chest x-ray with negative infiltrates or effusions. Head CT is negative for bleed or infarct. CT of the C-spine is negative. X-ray of the left shoulder is also negative other than postop changes. ASSESSMENT AND PLAN: A 53-year-old man presenting with syncope. Differential would include an arrhythmia such as tachycardia, or bradycardia that can cause loss of consciousness. Also differential include seizure, dehydration, vasovagal episode. The patient will be admitted to telemetry and monitored with serial troponins and EKG. Further cardiac workup would be indicated if he does have significant arrhythmia. He does have hypokalemia, most likely due to his diuretic use and this has been repeated in the ER. This could have contributed to arrhythmia. We will recheck this in the morning. Hypertension: It is not fully controlled with his hypertension, and so he will continue his current medications and add lisinopril daily. For his left shoulder pain, x-ray looks most reasonable, but he may have to see Dr. Ortiz, again for consultation regarding the left shoulder. For now, we can get him oxycodone as needed for pain. Code status is full. DVT prophylaxis will be early ambulation. Nothing else is needed. [id number]/[facility] #: [id number] [facility]ENTER[facility]
[2018-05-21] MEDS: Citalopram TAB* 20 MG PO SCH (20:55)
--- NOTE | 2018-05-21 21:19 | CONS ---
CC: Dr. Vera * CONSULTATION REPORT: DATE OF CONSULT: 05/21/18 REASON FOR CONSULT: Syncopal episode versus seizure. HISTORY OF PRESENT ILLNESS: Mr. Clark is a 53-year-old gentleman, who follows with Dr. Vera for many years. He has a history of seizure disorder and has had a workup including prior evaluation at [facility]. He notes that he has had 2 episodes in the distant past of loss of consciousness, bladder and bowel incontinence, and tongue biting. He was seen by Dr. Vera, who eventually sent him to [facility]. He reports to me that they never "found a seizure" but he has been treated with medication based on his symptoms. He notes that he has not had a seizure in years and has been on Lamictal 50 mg p.o. b.i.d. for many years and has been well controlled. He generally follows with Dr. Vera once a year. He has been in his usual state of health, although he recently did have rotator cuff surgery and has been getting tramadol for the pain, although he states the last time he took tramadol was back in early April. He also takes Seroquel at night, 12.5 to 25 mg for sleep. He is currently not working. Yesterday, his came in and found him on the ground in the kitchen. She feels that it was at least 10 minutes. There was no bladder or bowel incontinence, no tongue biting that he is aware of, and no witnessed seizure-like activity. He did notice some soreness in the back of his head, in his left shoulder where he had the surgery , but otherwise no other generalized body aches. He does not remember the episode at all. His reported to him that he was somewhat confused afterwards. Review of the admission records notes that he stated he was going into the kitchen and felt a little lightheadedness. At that point, the next thing he remembers was his waking him up on the floor. He notes no prior history. He states that he has been compliant with his medication. He denied any chest pain, shortness of breath, dyspnea on exertion, recent illnesses, fevers, chills. No focal numbness, tingling, or weakness that he is aware of. He has had, as I said, the left shoulder pain. He denies any tobacco use. He does drink occasionally and occasionally smokes marijuana. Since his admission to the hospital, he has felt "fine." He is anxious to go home. Complicating the picture is the fact that on admission, he did develop a bump in his troponins, Cardiology is to see the patient as well for further evaluation regarding his syncopal episode and elevated troponins. PAST MEDICAL HISTORY: As noted above with a history of hypertension, possible seizure disorder. PAST SURGICAL HISTORY: Includes: 1. Recent left shoulder surgery. 2. Neck cyst removed at age 5. 3. Appendectomy 10 years ago. 4. Inguinal hernia repair on the left and right. 5. Kidney stone surgery about 3 years ago. 6. Tympanoplasty in August of 2017. 7. Right rotator cuff repair. MEDICATIONS: His home medications include: 1. Amlodipine 5 mg q.p.m. 2. Quetiapine/Seroquel 25 mg at bedtime. 3. Potassium citrate. 4. Protonix. 5. Lamotrigine XR 100 mg at bedtime. 6. Ibuprofen 800 mg p.o. q.8 hours. 7. Folic acid. 8. Citalopram 30 mg at bedtime. 9. Chlorthalidone 50 mg at bedtime. 10. Aspirin 81 mg a day. ALLERGIES: HYDROCODONE. FAMILY HISTORY: No history of seizures that he is aware of. There is family history of hypertension in his father. SOCIAL HISTORY: Occasional alcohol use, some marijuana use. No tobacco use. Notes that he stopped smoking marijuana 2 weeks ago. REVIEW OF SYSTEMS: In 14-organ systems as above, otherwise negative. PHYSICAL EXAM: Temp of 98.1, pulse of 79, respiratory rate of 16, pulse ox of 94% on room air, blood pressure is 132/82, 113/82 to 124/81. In general, he is a well- nourished, well-developed gentleman, in no acute distress. He is lying in his hospital bed. Pleasant, well-dressed, well-groomed. HEENT: He is normocephalic, atraumatic. Sclerae are anicteric. Mucous membranes are moist. Oropharynx is clear. Nares are patent. Neck is supple. No thyromegaly. No carotid bruits. No meningismus. Chest: Clear to auscultation bilaterally. Cardiovascular: Regular rate and rhythm without murmurs. Abdomen is nontender , nondistended. Extremities: No clubbing, cyanosis, or edema. His skin is warm and dry. On neurologic exam, he is awake, alert, and oriented x3. His speech is fluent. There is no dysarthria. Repetition is intact. Recall of recent and remote events is intact. Vocabulary is intact. His mood is dysthymic. Affect is mood congruent. Cranial nerves II through XII: Pupils are equally round and reactive to light and accommodation. Extraocular muscles are intact. No nystagmus or diplopia noted. Facial davis are full throughout. Face is symmetric. Facial sensation is intact to light touch. Hearing is intact bilaterally. Palate raises symmetrically. Tongue is midline. Sternocleidomastoid and trapezius are 5/5. He has some mild limited range of motion in the left shoulder due to pain but otherwise he has 5/5 strength throughout. Tone and bulk are both normal. There is no drift. Finger -to-nose and rapid alternating movements are significant for mild intention tremor bilaterally. [id number] is intact. No dysdiadochokinesia or dysmetria noted. DTRs are 2+ and symmetric at the patella, ankles are 1+, equivocal Babinski, 2+ at the biceps, 2+ at the brachioradialis, 2+ at the triceps. His sensation is intact to light touch and pinprick in all extremities. Gait was not tested but he is walking around the cardenas without difficulty. DIAGNOSTIC STUDIES/LAB DATA: Includes CBC with diff that was normal. INR 1.0, D- dimer less than 200. BMP this morning, potassium of 3.4, creatinine of 1.25. His troponin was 0.00 to 0.00 to 0.19 to 0.00. Calcium of 9.1, magnesium of 1.9. TSH of 1.01. His urine was negative. His Lamictal level is pending. Cervical spine CT showed no evidence of acute fracture, some degenerative disk disease of C7, T1. CT of the head reviewed showed no acute intracranial abnormalities. No hemorrhage or mass effect. Some atrophy appreciated with some white matter disease, is generalized in nature. Telemetry has been negative. ASSESSMENT AND PLAN: Mr. Clark is a 53-year-old gentleman with a history of hypertension; history of seizure disorder, on Lamictal XR 100 mg a day; history of some depression; recent rotator cuff repair with some chronic pain. He also has some insomnia for which he takes Seroquel. His last seizure was years ago and has been well controlled. He follows yearly with Dr. Vera. Yesterday was found down on the ground, may have been down for at least 10 minutes. No bladder or bowel incontinence. No tongue biting. Although he appeared to be somewhat confused afterwards, there was no witnessed seizure-like activity. When he was admitted to the hospital, he also had a mild bump in his troponins overnight. Cardiology is evaluating as well as Neurology. At this point, it is possible that he could have had a breakthrough seizure. He is on several medications including tramadol and Seroquel, both of which can lower seizure threshold. In addition, he takes citalopram which can lower seizure threshold. I would recommend that he not be given tramadol for his pain, that he not take Seroquel at night for sleep, consider an alternative medication such as melatonin. My plan is to check a Lamictal level, but I would not change any medications at this point given the fact that he has done so well on this dose for years. My plan is to have him follow up with Dr. Vera in the next few weeks after his discharge from the hospital. At this point, given his bump in troponins, Cardiology is evaluating and I believe they are going to do a nuclear stress test to make sure there have been no ischemic changes and to evaluate his heart more fully. His blood pressure has been better controlled in the hospital. I will continue him on seizure precautions. I did discuss with him the fact that he should not drive at this point until medically cleared , no hikes, no heavy machinery, no swimming alone, no baths, only showers, and to avoid open flames. He verbalized understanding. I will sign off for now but will remain available with any further activity. Otherwise, we will set him up for an outpatient appointment upon discharge. Thank you for the opportunity to participate in his care. [id number]/[facility] #: [id number] ELADIO
[2018-05-22 05:39] LABS: EGFR Non-African American 62.7 (>60)
[2018-05-22 08:00] VITALS: BP 132/91
[2018-05-22] MEDS ORDERED: Potassium Chlor TAB* 20 MEQ TAB.ER PO SCH (09:00)
[2018-05-22] MEDS: Lisinopril TAB* 5 MG PO SCH (09:22)
[2018-05-22] MEDS: lamoTRIgine TAB(*) 25 MG PO SCH (09:22)
[2018-05-22] MEDS: Enoxaparin(*) 40 MG/0.4 ML SYR SUBCUT SCH (14:14)
--- NOTE | 2018-05-22 20:10 | CONS ---
CC: Dr. Kristian Bell; Dr. Matilda Dhillon * FOLLOWUP CARDIOLOGY CONSULTATION: DATE OF CONSULT: 05/22/18 INDICATION FOR CONSULT: Followup syncope, stress test. HISTORY OF PRESENT ILLNESS: The patient is a 53-year-old gentleman who was admitted to the hospital with syncopal episode. Please see Dr. Dhillon's consultation from yesterday. Dr. Dhillon had ordered an exercise nuclear stress test for further evaluation. Since being in the hospital, the patient's telemetry had shown no arrhythmias. The patient has had no further symptoms. The patient's stress test, he exercised for 8-1/2 minutes. He had no chest pain. No EKG changes. No arrhythmias. His nuclear images which I reviewed personally showed a mild area of potential ischemia to his inferior wall. Attenuation correction was not done as the patient could not raise his arm up over his head. In looking at the raw images, there is some degree of diaphragmatic attenuation to the inferior wall. Overall, it is a low risk stress test based on his exercise tolerance and nuclear images. For now, my recommendation that he should be discharged from the hospital. The patient will follow up with Dr. Dhillon and Dr. Kristian Bell. At this point, I do not think any other testing is necessary. If the patient has any further symptoms, I would consider long-term telemetry monitoring as an outpatient. [id number]/[facility] #: [id number] ELADIO
--- NOTE | 2018-05-23 08:52 | DS ---
CC: Dr. Dhillon; Dr. Bell; Dr. Vera * DISCHARGE SUMMARY: DATE OF ADMISSION: 05/20/18 DATE OF DISCHARGE: 05/22/18 FINAL DISCHARGE DIAGNOSES: 1. Syncope. 2. Elevated troponin. 3. Hypertension. 4. Left shoulder pain. 5. History of seizure. HOSPITAL COURSE/SUBJECTIVE: This is a 53-year-old male who came into the emergency room after he was found unresponsive at home on the floor in the kitchen by his with unknown duration, for at least 6 to 10 minutes as the patient was missing or was not accounted for 10 minutes, while the was at home, and when she went to look for him, he was on the floor in the kitchen. The patient denied any preceding event other than lightheadedness, no chest pain , no palpitation. He came into the emergency room, he was evaluated. His troponin initially was negative. His repeat troponin came back slightly elevated , 0.19. Hence, he was admitted to [facility] for observation with cardiology and neurology consultation. The patient was seen by Dr. Brothers, of Neurology who was covering for Dr. Vrea and recommended to discontinue the Seroquel and to refrain from taking any pain medications such as tramadol which he takes at home. The patient was instructed to discontinue his tramadol and he informed me that he has not taken them for several months. The Seroquel was substituted with trazodone to help him with the sleep. In terms of cardiology, he was seen by Dr. Dhillon and recommended to obtain an echocardiogram which was fairly unremarkable and nuclear stress test which was done and reviewed by Dr. Sullivan and he deemed him low risk and to follow up with cardiology, with Dr. Dhillon as outpatient and he was being stable for discharge. DISCHARGE MEDICATIONS: 1. Continue Tylenol as needed for pain. 2. Potassium was increased to 20 mEq twice a day as his potassium was low. 3. Trazodone 50 mg at bedtime. 4. Celexa 30 mg at bedtime. 5. Protonix 40 mg every day. 6. Folic acid 2 mg daily. 7. Amlodipine 5 mg daily. 8. Aspirin 81 mg daily. 9. Lamictal 100 mg at bedtime. 10. Ibuprofen p.r.n. for shoulder pain. 11. Chlorthalidone 50 mg every evening. The patient was told to discontinue his Seroquel and discontinue his potassium citrate. DISCHARGE INSTRUCTIONS: 1. The patient to follow up with his provider, Dr. Kristian Bell in 4 to 7 days. 2. To follow up with Dr. Dhillon in 1 to 2 weeks. 3. Follow up with Dr. Vera in 1 to 2 weeks. [id number]/[facility] #: [id number] MTDD
== END 2018-05-22 15:45 | disposition home or self-care (01) ==
LOC: ED 15:49 → MEDTELE 19:59
PROVIDERS: ADMIT Internal Medicine; ATTEND Internal Medicine
DX: R55 Syncope and collapse (principal); R79.89 Other specified abnormal findings of blood chemistry; I10 Essential (primary) hypertension; M25.512 Pain in left shoulder; Z86.69 Personal history of other diseases of the nervous system and sense organs; Z79.82 Long term (current) use of aspirin; Z90.89 Acquired absence of other organs; R51 Headache; R42 Dizziness and giddiness
CPT/HCPCS: 36415; 70450; 71045; 72125; 78452; 80048; 80053; 80175; 80307; 81003; 82553; 83605; 83735; 83880; 84436; 84443; 84484; 85025; 85379; 85610; 85730; 93005; 93017; 93306; 96372; 96374; 96375; 99284; A9270-GY; A9502; G0378; J1650; J2405; J3010

== ENCOUNTER 2019-03-11 15:03 | Emergency (ER) | payer BC ==
--- OUTSIDE RECORDS SUMMARY | 2019-03-11 15:08 | XMS REPORT | Continuity of Care Document ---
:1965 External Reference #:[id number] Author Name Ankita Vera M.D. 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 [phone] Problems Active Problems Provider Date Complex partial epileptic seizure Milka Marte NP Onset: 12/19/2014 Strain of muscle(s) and tendon(s) of the rotator Esther Ortiz MD Onset: cuff of left shoulder, subsequent encounter Full thickness rotator cuff tear Esther Ortiz MD Onset: 04/14/2018 Localized, primary osteoarthritis of the shoulder Esther Ortiz MD Onset: 07/2017 region Social History Type Date Description Comments Sex Unknown ETOH Use Rarely consumes alcohol Recreational Drug Use Current Drug User Tobacco Use Start: Unknown Patient has never smoked Recreational Drug Use Current Drug User marijuana occ Recreational Drug Use Former Drug User Smoking Status Reviewed: 01/31/19 Patient has never smoked Exercise Type/Frequency Exercises sporadically Exercise Type/Frequency Exercises regularly Allergies, Adverse Reactions, Alerts Active Allergies Reaction Severity Comments Date diltiazem fatigue 03/31/2005 Hydrocodone 12/02/2010 Tramadol lowers seizure threshold 06/16/2018 Medications Active Medications SIG Qnty Indications Ordering Date Provider Lamictal XR take 1 by mouth 90tabs Ankita Vera, 06/16/2018 250mg Tablets at bedtime M.D. ER 24HR Norvasc 1 po qd 30tabs Zachary Love 06/26/2003 2.5mg Tablets Darinel Resendez Folic Acid 1 po bid 90tabs Zachary oLve 03/28/2003 1mg Tablets Darinel Resendez Viagra 1/2 po prn Zachary Love 03/28/2003 100mg Tablets Darinel Resendez Aspirin 1 po qd 50tabs Unknown 81mg Tablets DR Celexa 1 + 1/2 by mouth Zachary Love 10mg Tablets every day Darinel Resendez Flonase Allergy Relief spray 1 spray in Unknown each nostril 50mcg/Act Suspension daily Ativan take 06/16 - 06/14 Unknown 1mg Tablets tab prn (very rare use) Potassium Citrate ER 15 mg 1 po bid Unknown 20Meq (1620 mg) Tablets ER Chlorthalidone 1 by mouth every Unknown 50mg Tablets day Ibuprofen 1 by mouth three Unknown 800mg Tablets times a day prn Immunizations Description No Information Available Vital Signs Date Vital Result Comment 01/31/2019 9:06am Height 69 inches 5'9" Weight 178.00 lb Heart Rate 72 /min BP Systolic Sitting 132 mmHg took pill with Caffeine this am BP Diastolic Sitting 100 mmHg took pill with Caffeine this am Respiratory Rate 20 /min BMI (Body Mass Index) 26.3 kg/m2 09/19/2018 9:53am Height 69 inches 5'9" Weight 170.00 lb BP Systolic 124 mmHg BP Diastolic 80 mmHg Respiratory Rate 18 /min Pain Level 0 BMI (Body Mass Index) 25.1 kg/m2 Results Description No Information Available Procedures Description No Information Available Medical Devices Description No Information Available Encounters Type Date Location Provider Dx Diagnosis Office Visit 09/19/2018 Orthopedic Esther Ortiz MD M75.122 Complete 9:45a [facility] rotatr-cuff tear/ruptr of left shoulder, not trauma M19.012 Primary osteoarthritis, left shoulder Z47.89 Encounter for other orthopedic aftercare Office Visit 08/04/2018 11:30a Orthopedic Sharifa Kelsey75.122 Complete [facility] MD [facility] tear/ruptr of left shoulder, not trauma M19.012 Primary osteoarthritis, left shoulder Z47.89 Encounter for other orthopedic aftercare Assessments Date Code Description Provider 01/31/2019 R25.1 Tremor, unspecified Ankita Vera M.D. 01/31/2019 G40.909 Epilepsy, unspecified, not intractable, Ankita Vera M.D. without status epile 09/19/2018 M75.122 Complete rotator cuff tear or rupture of left Esther Ortiz MD shoulder, not 09/19/2018 M19.012 Primary osteoarthritis, left shoulder Esther Ortiz MD 09/19/2018 Z47.89 Encounter for other orthopedic aftercare Esther Ortiz MD 08/04/2018 M75.122 Complete rotator cuff tear or rupture of left Esther Ortiz MD shoulder, not 08/04/2018 M19.012 Primary osteoarthritis, left shoulder Esther Ortiz MD 08/04/2018 Z47.89 Encounter for other orthopedic aftercare Esther Ortiz MD Plan of Treatment Future Appointment(s):08/03/2019 10:00 am - Ankita Vera M.D. at [facility]01/31/2019 - Ankita Vera M.D.R25.1 Tremor, pxvvokegeuiQ23.909 Epilepsy, unspecified, not intractable, without status epile Functional Status Description No Information Available Mental Status Description No Information Available Referrals Description No Information Available
[2019-03-11 15:43] VITALS: BP 132/93
--- NOTE | 2019-03-11 16:02 | UC ---
UC General HPI - HPI Summary HPI Summary: Tic on left side of back unsure how long it was been there--most likely over 24 hours - History of Current Complaint Chief Complaint: UCSkin Stated Complaint: TICK BITE Time Seen by Provider: 03/11/19 16:01 Hx Obtained From: Patient Onset/Duration: Sudden Onset, Lasting Days - 1, Still Present Timing: Constant Pain Intensity: 0 - Allergy/Home Medications Allergies/Adverse Reactions: Allergies Allergy/AdvReac Type Severity Reaction Status Date / Time hydrocodone Allergy ITCH, Verified 03/11/19 15:43 BRAND NAME VICODIN IS OK PMH/Surg Hx/FS Hx/Imm Hx Previously Healthy: No Cardiovascular History: Hypertension Psychological History: Depression, Bipolar Disorder - Surgical History Surgical History: Yes Surgery Procedure, Year, and Place: CYST REMOVED FROM NECK AGE 5. APPENDECTOMY - ABOUT 10 YEARS AGO. SHOULDER SURGERY-LEFT. HERNIA REPAIR- INGUINAL- LEFT AND RIGHT- A CHILD. kidney stone surgery approx 3 years ago. RIGHT [id number]/2018. RIGHT SHOULDER ROTATOR CUFF REPAIR - Family History Known Family History: Positive: Hypertension Negative: Respiratory Disease, Seizure Disorder - Social History Occupation: Works From/At Home Lives: With Family Alcohol Use: Occasionally Substance Use Type: Marijuana Substance Use Comment - Amount & Last Used: stopped smoking Smoking Status (MU): Never Smoked Tobacco Have You Smoked in the Last Year: No - Immunization History Most Recent Tetanus Shot: Thinks it is UTD Review of Systems All Other Systems Reviewed And Are Negative: Yes Constitutional: Positive: Negative Skin: Positive: Other - tick left upper back Eyes: Positive: Negative ENT: Positive: Negative Respiratory: Positive: Negative Cardiovascular: Positive: Negative Gastrointestinal: Positive: Negative Genitourinary: Positive: Negative Motor: Positive: Negative Neurovascular: Positive: Negative Musculoskeletal: Positive: Negative Neurological: Positive: Negative Psychological: Positive: Negative Is Patient Immunocompromised?: No Physical Exam Triage Information Reviewed: Yes Appearance: Well-Appearing, No Pain Distress, Well-Nourished Vital Signs: Initial Vital Signs Temp 99.2 F 03/11/19 15:39 Pulse 95 03/11/19 15:39 Resp 16 03/11/19 15:39 BP 132/93 03/11/19 15:39 Pulse Ox 100 03/11/19 15:39 Vital Signs Reviewed: Yes Eye Exam: Normal Eyes: Positive: Conjunctiva Clear ENT Exam: Normal ENT: Positive: Normal ENT inspection, Hearing grossly normal. Negative: Trismus , Muffled voice, Hoarse voice Dental Exam: Normal Neck exam: Normal Neck: Positive: Supple, Nontender Respiratory Exam: Normal Respiratory: Positive: Chest non-tender, No respiratory distress, No accessory muscle use Cardiovascular Exam: Normal Cardiovascular: Positive: RRR, Pulses Normal, Brisk Capillary Refill Musculoskeletal Exam: Normal Musculoskeletal: Positive: Strength Intact, ROM Intact, No Edema Neurological Exam: Normal Neurological: Positive: Alert, Muscle Tone Normal Psychological Exam: Normal Skin Exam: Normal Re-Evaluation - Re-Evaluation First Eval Change: Improved - Tic removed intact and - Course/Dx - Course Course Of Treatment: Doxycycline time 200 mg now--mild soap and water wash observe for s/s of Lyme-- follow with pcp or return prn - Diagnoses Provider Diagnosis: Tick bite of back, Risk of exposure to Lyme disease Discharge ED - Sign-Out/Discharge Documenting (check all that apply): Patient Departure All imaging exams completed and their final reports reviewed: No Studies - Discharge Plan Condition: Stable Disposition: HOME Patient Education Materials: Lyme Disease (ED), Tick Bite (ED) Referrals: Kristian Bell MD [Primary Care Provider] - If Needed - Billing Disposition and Condition Condition: STABLE Disposition: Home
[2019-03-11] MEDS ORDERED: DOXYcycline CAP(*) 100 MG PO ONE (16:07)
== END 2019-03-11 16:26 | disposition home or self-care (01) ==
LOC: UCEAST 15:03
DX: S20.462A Insect bite (nonvenomous) of left back wall of thorax, initial encounter (principal); I10 Essential (primary) hypertension; Z88.5 Allergy status to narcotic agent; W57.XXXA Bitten or stung by nonvenomous insect and other nonvenomous arthropods, initial encounter; Y92.9 Unspecified place or not applicable
CPT/HCPCS: 99212; A9270-GY; G0463

== ENCOUNTER 2019-04-05 15:02 | Emergency (ER) | payer BC ==
--- OUTSIDE RECORDS SUMMARY | 2019-04-05 15:07 | XMS REPORT | Continuity of Care Document ---
:1965 External Reference #:[id number] Author Name Niraj Bell MD Address [address] [place] [address] Problems Active Problems Provider Date Generalized convulsive epilepsy Niraj Bell MD Onset: 02/15/2019 Tremor Niraj Bell MD Onset: 02/15/2019 Essential tremor Onset: 08/05/2018 Ectasia of thoracic aorta Onset: 05/17/2018 Tubular adenoma of colon Onset: 07/19/2016 Multiple congenital cysts of kidney Onset: 08/12/2003 Social History Type Date Description Comments Sex Unknown Allergies, Adverse Reactions, Alerts Active Allergies Reaction Severity Comments Date Tramadol Hydrochloride Lowers sz threshhold Moderate 02/16/2019 Trazodone Hydrochloride Loopy Mild 02/16/2019 Medications Active Medications SIG Qnty Indications Ordering Date Provider Citalopram Hydrobromide Take 2 Tablets 60tabs Niraj Bell MD 03/07/2019 By Mouth Once 20mg Tablets Daily Fluticasone Propionate 2 sprays daily 16units Unknown 08/10/2018 per nostril 50mcg/Act Suspension Nasal Amlodipine Besylate 1 daily Oral 30tabs Unknown 07/28/2018 5mg Tablets Aspirin Ec 1 daily Oral 30tabs Unknown 07/28/[address] Folic Acid 2 daily Oral 60tabs Unknown 07/28/2018 1mg Tablets Lamictal 2.5 daily Oral 30tabs Unknown 07/28/2018 100mg Tablets Seroquel 1/2 four times 60tabs Unknown 07/28/2018 25mg Tablets each day Oral Lorazepam 1/2 3 times a 15tabs Unknown 06/26/2018 1mg Tablets day prn Oral Atorvastatin Calcium 1 daily Oral 30tabs Unknown 06/26/2018 40mg Tablets Chlorthalidone 1 daily Oral Unknown 08/11/2017 50mg Tablets Klor-Con M20 1 twice daily Unknown 08/11/2017 20Meq Tablets Oral ER Immunizations CPT Code Status Date Vaccine Lot # [id number] Given 03/26/2019 Shingrix - Shingles vaccine, Herpes Zoster [id number] Given 03/15/2019 Flu < 65 years [id number] 62113 Given 06/26/2018 Flu < 65 years 37042 Given 05/17/2017 Flu < 65 years 24001 Given 03/08/2014 Influenza Virus Vaccine, Quadrivalent, Split, Im Use 0.25ML 92344 Given 03/30/2013 Flu < 65 years 23684 Given 03/27/2012 Flu < 65 years 60162 Given 11/04/2011 Tdap - Boostrix/Adacel [id number] Refused 05/17/2018 Influenza Virus Vaccine, Quadrivalent, Split, Im Use 0.25ML 28410 Refused 03/25/2016 Influenza Virus Vaccine, Quadrivalent, Split, Im Use 0.25ML 26299 Refused 03/07/2014 Influenza Virus Vaccine, Quadrivalent, Split, Im Use 0.25ML 97312 Refused 11/04/2011 Influenza Virus Vaccine, Quadrivalent, Split, Im Use 0.25ML Vital Signs Date Vital Result Comment 03/26/2019 10:43am BP Systolic 122 mmHg BP Diastolic 78 mmHg Height 69.5 inches 5'9.50" Weight 181.00 lb Heart Rate 78 /min Body Temperature 96.6 F O2 % BldC Oximetry 97 % BMI (Body Mass Index) 26.3 kg/m2 03/15/2019 10:01am BP Systolic 138 mmHg BP Diastolic 82 mmHg Weight 177.00 lb Heart Rate 82 /min Body Temperature 96.7 F O2 % BldC Oximetry 97 % Results Description No Information Available Procedures Date Code Description Status 03/26/2019 35575 Brief Emotional/Behav Assessment W/ Scoring Doc Per Completed Standard Inst Medical Devices Description No Information Available Encounters Type Date Location Provider Dx Diagnosis Office Visit 03/26/2019 10:45a [facility] Ricki Bell MD Z13.31 Encounter for screening for depression Z68.26 Body mass index (BMI) 26.0-26.9, adult Office Visit 03/15/2019 10:00a [facility] XIOMARA Cristobal L23.7 Allergic contact dermatitis due to plants, except food H92.01 Otalgia, right ear Assessments Date Code Description Provider 03/26/2019 Z13.31 Encounter for screening for depression Niraj Bell MD 03/26/2019 Z68.26 Body mass index (BMI) 26.0-26.9, adult Niraj Bell MD 03/15/2019 L23.7 Allergic contact dermatitis due to plants, except XIOMARA Casillas food 03/15/2019 H92.01 Otalgia, right ear XIOMARA Casillas Plan of Treatment Future Appointment(s):09/25/2019 11:00 am - Niraj Bell MD at [facility]2018 - Niraj Bell MDZ13.31 Encounter for screening for whzckuzdkzS00.26 Body mass index (BMI) 26.0-26.9, adult Functional Status Description No Information Available Mental Status Description No Information Available Referrals Description No Information Available
--- OUTSIDE RECORDS SUMMARY | 2019-04-05 15:07 | XMS REPORT | Continuity of Care Document ---
:1965 External Reference #:[id number] Author Name Dejah Perera PA-C Address [address] [place] [address] Care Team Providers Name Role Phone Kristian Bell M.D. 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 Onset: 10/05/2011 Tympanosclerosis involving tympanic Aníbal Dove M.D. Onset: 2011 membrane only Deviated nasal septum Aníbal Dove M.D. Onset: 10/05/2011 Sensorineural hearing loss, bilateral Aníbal Dove M.D. Onset: 10/04 Social History Type Date Description Comments Sex Unknown Tobacco Use Start: Unknown Never Smoked Cigarettes Tobacco Use Start: Unknown Current Cigar Smoker, Has smoked for 10 Smokes An Occasional Cigar years, maybe 1 or 2 a year Tobacco Use Start: Unknown Never Smoked A Pipe Smoking Status Reviewed: 03/14/19 Never Smoked A Pipe Smokeless Tobacco Never Used Smokeless Tobacco ETOH Use Currently rarely consumes alcohol Tobacco Use Start: Unknown Patient has never smoked Allergies, Adverse Reactions, Alerts Active Allergies Reaction Severity Comments Date Hydrocodone Urticaria 07/08/2008 Medications Active Medications SIG Qnty Indications Ordering Provider Date Ofloxacin (Ophthalmic) 3 drops affected 15ml H65.21 Aníbal Dorsey 03/16/2019 ear twice a day Darinel Dove 0.3% Solution Folic Acid as directed Melanie Araya NP Aspirin Self 81mg Tablets Amlodipine Besylate Unknown 5mg Tablets Citalopram Unknown Hydrobromide 20mg Tablets Lamotrigine ER [place], Melanie DREDGE OR BARGE SHORE HAND 100mg Tablets ER 24HR Viagra Unknown 100mg Tablets Ibuprofen Take 1 Tablet By Unknown 600mg Tablets Mouth Every 6 Hours If Needed For Pain Pantoprazole Sodium Unknown 40mg Tablets DR Immunizations Description No Information Available Vital Signs Date Vital Result Comment 03/16/2019 9:34am Weight 180.00 lb Weight 81.648 kg Height 69 inches 5'9" Height in cm's 175.3 cm BMI (Body Mass Index) 26.6 kg/m2 09/15/2018 9:32am Weight 180.00 lb Weight 81.648 kg Height 69 inches 5'9" Height in cm's 175.3 cm BMI (Body Mass Index) 26.6 kg/m2 Results Description No Information Available Procedures Description No Information Available Medical Devices Description No Information Available Encounters Type Date Location Provider Dx Diagnosis Office Visit 09/15/2018 [facility] Dejah Perera H65.21 Chronic serous 9:30a 06/13/07 [facility] otitis media, right ear Assessments Date Code Description Provider 03/16/2019 H65.21 Chronic serous otitis media, right ear Dejah Perera PA-C 09/15/2018 H65.21 Chronic serous otitis media, right ear Dejah Perera PA-C Plan of Treatment Future Appointment(s):03/28/2019 10:30 am - Aníbal Dove M.D. at [facility] 06/13/809 - CHRISTINE ChingCH65.21 Chronic serous otitis media, right earNew Medication:Ofloxacin (Ophthalmic) 0.3 % - 3 drops affected ear twice a dayFollow up:RNS in 2 weeks, possible tube, check tonsil asymmetry Functional Status Description No Information Available Mental Status Description No Information Available Referrals Description No Information Available
--- OUTSIDE RECORDS SUMMARY | 2019-04-05 15:07 | XMS REPORT | Continuity of Care Document ---
:1965 External Reference #:[id number] Author Name XIOMARA Casillas Address [address] [place] [address] Problems Active Problems Provider Date Generalized convulsive [...] Qnty Indications Ordering Date Provider Citalopram Hydrobromide take 2 tablets 60tabs XIOMARA Casillas 03/07/2019 by mouth once 20mg Tablets daily Fluticasone Propionate 2 sprays daily 16units Unknown 08/10/2018 per nostril 50mcg/Act Suspension Nasal Celexa 2 daily Oral 60tabs Unknown 08/07/2018 20mg Tablets Amlodipine Besylate 1 daily Oral 30tabs Unknown [...] CPT Code Status Date Vaccine Lot # [id number] Given 03/15/2019 Flu < 65 years [id number] 10714 Given 06/26/2018 Influenza Virus Vaccine, Quadrivalent, Split Virus, Im Use 0.5ML 45115 Given 06/26/2018 Flu < 65 years 22024 Given 06/26/2018 Influenza Virus Vaccine, Quadrivalent, Split, Preservative Free 47449 Given 06/26/2018 Flumist 69551 Given 06/26/2018 Flu High Dose 22426 Given 06/26/2018 Influenza Virus Vaccine, Split, Preserv Free, Intradermal Use 83038 Given 05/17/2017 Influenza Virus Vaccine, Split, Preserv Free, Intradermal Use 91029 Given 05/17/2017 Flu High Dose 97292 Given 05/17/2017 Flumist 96741 Given 05/17/2017 Influenza Virus Vaccine, Quadrivalent, Split, Preservative Free 98499 Given 05/17/2017 Flu < 65 years 61443 Given 05/17/2017 Influenza Virus Vaccine, Quadrivalent, Split Virus, Im Use 0.5ML 88929 Given 03/08/2014 Influenza Virus Vaccine, Quadrivalent, Split, Im Use 0.25ML 87747 Given 03/30/2013 Flu High Dose 00976 Given 03/30/2013 Flumist 19281 Given 03/30/2013 Influenza Virus Vaccine, Quadrivalent, Split, Preservative Free 63101 Given 03/30/2013 Flu < 65 years 74129 Given 03/30/2013 Influenza Virus Vaccine, Quadrivalent, Split, Im Use 0.25ML 01828 Given 03/30/2013 Influenza Virus Vaccine, Quadrivalent, Split, Im Use 0.25ML 15292 Given 03/30/2013 Influenza Virus Vaccine, Quadrivalent, Split, Im Use 0.25ML 27214 Given 03/27/2012 Influenza Virus Vaccine, Quadrivalent, Split, Im Use 0.25ML 05538 Given 03/27/2012 Influenza Virus Vaccine, Quadrivalent, Split, Im Use 0.25ML 28003 Given 03/27/2012 Influenza Virus Vaccine, Quadrivalent, Split, Im Use 0.25ML 56109 Given 03/27/2012 Flu < 65 years 62773 Given 03/27/2012 Influenza Virus Vaccine, Quadrivalent, Split, Preservative Free 72232 Given 03/27/2012 Flumist 43424 Given 03/27/2012 Flu High Dose 35388 Given 11/04/2011 Tdap - Boostrix/Adacel 51165 Refused 05/17/2018 Influenza Virus Vaccine, Quadrivalent, Split, Im Use 0.25ML 49630 Refused 03/25/2016 Influenza Virus Vaccine, Quadrivalent, Split, Im Use 0.25ML 63266 Refused 03/07/2014 Influenza Virus Vaccine, Quadrivalent, Split, Im Use 0.25ML 52306 Refused 11/04/2011 Influenza Virus Vaccine, Quadrivalent, Split, Im Use 0.25ML Vital Signs Date Vital Result Comment 03/15/2019 10:01am BP Systolic 138 mmHg BP Diastolic 82 mmHg Weight 177.00 lb Heart Rate 82 /min Body Temperature 96.7 F O2 % BldC Oximetry 97 % 08/07/2018 10:58am BP Systolic 120 mmHg Heart Rate 88 /min Body Temperature 98.1 F O2 % BldC Oximetry 95 % Results Description No Information Available Procedures Description No Information Available Medical Devices Description No Information Available Encounters Type Date Location Provider Dx Diagnosis Office Visit 03/15/2019 10:00a [facility] XIOMARA Casillas L23.7 Allergic contact dermatitis due to plants, except food H92.01 Otalgia, right ear Assessments Date Code Description Provider 03/15/2019 L23.7 Allergic contact dermatitis due to plants, except XIOMARA Casillas food 03/15/2019 H92.01 Otalgia, right ear XIOMARA Casillas Plan of Treatment Future Appointment(s):03/26/2019 10:45 am - Niraj Bell MD at [facility] Main2018 - DARA CasillasPL23.7 Allergic contact dermatitis due to plants, except foodH92.01 Otalgia, right earComments:discussed that right ear looks normal- no infection but slight cerumen buildup- take acetminophen oribuprofen for pain as needed- followup with Dr Dove next weekcontact dermatitis- contniue to ue marquise dry on rash can also use hydrocortisone cream to reduce itching and tke bendryl to reduce itching if neededtick bite- no further evaluation or treatment needed at this timeFollow up:As needed. Functional Status Description No Information Available Mental Status Description No Information Available Referrals Description No Information Available
[2019-04-05 15:18] VITALS: BP 119/97
--- NOTE | 2019-04-05 15:41 | UC ---
Skin Complaint HPI - HPI Summary HPI Summary: 54-year-old male who noticed a tick in his mid back this morning. He thinks it' s been on since last evening. - History of Current Complaint Chief Complaint: UCSkin Time Seen by Provider: 04/05/19 15:32 Stated Complaint: tick BITE Hx Obtained From: Patient Onset/Duration: Gradual Onset Skin Exposure Onset/Duration: Hours Ago Timing: Constant Onset Severity: Mild Current Severity: Mild Pain Intensity: 0 Location: Other - Mid back. Aggravating Factor(s): Nothing Alleviating Factor(s): Nothing Associated Signs & Symptoms: Positive: Negative - Allergy/Home Medications Allergies/Adverse Reactions: Allergies Allergy/AdvReac Type Severity Reaction Status Date / Time hydrocodone Allergy ITCH, Verified 03/11/19 15:43 BRAND NAME VICODIN IS OK PMH/Surg Hx/FS Hx/Imm Hx Previously Healthy: Yes - Surgical History Surgical History: Yes Surgery Procedure, Year, and Place: CYST REMOVED FROM NECK AGE 5. APPENDECTOMY - ABOUT 10 YEARS AGO. SHOULDER SURGERY-LEFT. HERNIA REPAIR- INGUINAL- LEFT AND RIGHT- A CHILD. kidney stone surgery approx 3 years ago. RIGHT [id number]. RIGHT SHOULDER ROTATOR CUFF REPAIR - Family History Known Family History: Positive: Hypertension Negative: Respiratory Disease, Seizure Disorder - Social History Alcohol Use: Occasionally Substance Use Type: Marijuana Substance Use Comment - Amount & Last Used: occasionally Smoking Status (MU): Never Smoked Tobacco Have You Smoked in the Last Year: No - Immunization History Most Recent Tetanus Shot: Thinks it is UTD Review of Systems All Other Systems Reviewed And Are Negative: Yes Skin: Positive: Other - Tick has been embedded in midback since last evening, he thinks. Is Patient Immunocompromised?: No Physical Exam Triage Information Reviewed: Yes Appearance: Well-Appearing, No Pain Distress, Well-Nourished Vital Signs: Initial Vital Signs Temp 99.1 F 04/05/19 15:10 Pulse 90 04/05/19 15:10 Resp 16 04/05/19 15:10 BP 119/97 04/05/19 15:10 Pulse Ox 95 04/05/19 15:10 Vital Signs Reviewed: Yes Skin: Positive: Other - There is a very minimally engorged tick in the mid back. Course/Dx - Course Course Of Treatment: The patient is comfortable here. I was able to remove the tick without difficulty using the tick twister. I am going to treat the patient with prophylactic doxycycline 200 mg one time dose. He's follow-up with his primary care provider as needed for any symptoms of Lyme disease which were given in the instructions. - Diagnoses Provider Diagnosis: Tick bite Discharge ED - Sign-Out/Discharge Documenting (check all that apply): Patient Departure All imaging exams completed and their final reports reviewed: No Studies - Discharge Plan Condition: Good Disposition: HOME Prescriptions: DOXYcycline CAP(*) [DOXYcycline 100MG CAP(*)] 200 mg PO ONCE 1 Days #2 cap Patient Education Materials: Tick Bite (ED) Referrals: Kristian Bell MD [Primary Care Provider] - Additional Instructions: No dairy products, antacids or multivitamins 2 hours before you take the doxycycline and 2 hours after you take it however take it with food. Definite follow-up with your primary care provider if you develop fever, chills, rashes, body aches over the next 2-3 weeks. - Billing Disposition and Condition Condition: GOOD Disposition: Home - Attestation Statements Provider Attestation: Per institutional requirements, I have reviewed the chart, however, I was not consulted specifically or made aware of this patient by the midlevel provider. I did not personally evaluate, interact with , or disposition this patient.
== END 2019-04-05 15:50 | disposition home or self-care (01) ==
LOC: UCEAST 15:02
DX: S30.860A Insect bite (nonvenomous) of lower back and pelvis, initial encounter (principal); Z88.5 Allergy status to narcotic agent; W57.XXXA Bitten or stung by nonvenomous insect and other nonvenomous arthropods, initial encounter; Y92.9 Unspecified place or not applicable
CPT/HCPCS: 99212; G0463

== ENCOUNTER 2019-04-11 12:07 | Emergency (ER) | payer SELFPAY ==
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
[2019-04-11] MEDS ORDERED: Ibuprofen TAB* 600 MG PO ONE (12:34)
[2019-04-11] MEDS ORDERED: oxyCODONE/Acetamin 5/325 MG* TAB PO ONE (12:34)
[2019-04-11 13:48] VITALS: BP 157/108
== END 2019-04-11 13:47 | disposition home or self-care (01) ==
LOC: ED 12:07
DX: S16.1XXA Strain of muscle, fascia and tendon at neck level, initial encounter (principal); S39.012A Strain of muscle, fascia and tendon of lower back, initial encounter; V43.53XA Car driver injured in collision with pick-up truck in traffic accident, initial encounter; Y92.410 Unspecified street and highway as the place of occurrence of the external cause; I10 Essential (primary) hypertension; K21.9 Gastro-esophageal reflux disease without esophagitis; F41.9 Anxiety disorder, unspecified; F32.9 Major depressive disorder, single episode, unspecified; Z79.899 Other long term (current) drug therapy; Z88.5 Allergy status to narcotic agent
CPT/HCPCS: 71046; 99282; A9270-GY

== ENCOUNTER 2019-04-21 11:23 | Emergency (ER) | payer SELFPAY ==
--- OUTSIDE RECORDS SUMMARY | 2019-04-21 11:33 | XMS REPORT | Continuity of Care Document ---
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 Social History Type Date Description Comments Sex Unknown Allergies, Adverse Reactions, Alerts Active Allergies Reaction Severity Comments Date Hydrocodone Urticaria 03/28/2019 Tramadol Hydrochloride Lowers sz threshhold Moderate 02/16/2019 Trazodone Hydrochloride Loopy Mild 02/16/2019 Medications Active Medications SIG Qnty Indications Ordering Date Provider Ofloxacin (Ophthalmic) 3 drops affected 15units H65.21 Derrell, 2018 ear twice a day Aníbal ROMERO 0.3% Solution Citalopram Take 2 Tablets 60tabs Kristian Bell MD 03/07/2019 Hydrobromide By Mouth Once 20mg Tablets Daily Fluticasone [...] M20 1 twice daily Unknown 08/11/2017 20Meq Oral Tablets ER Viagra Unknown 100mg Tablets Ibuprofen Take 1 Tablet By Unknown 600mg Tablets Mouth Every 6 Hours If Needed For Pain Pantoprazole Sodium Unknown 40mg Tablets DR Immunizations CPT Code Status Date Vaccine Lot # [id number] Given 03/26/2019 Shingrix - Shingles vaccine, Herpes Zoster [id number] Given 03/15/2019 Flu < 65 years [id number] 13093 Given 06/26/2018 Flu < 65 years 81453 Given 05/17/2017 Flu < 65 years 47195 Given 03/08/2014 Influenza Virus Vaccine, Quadrivalent, Split, Im Use 0.25ML 28203 Given 03/30/2013 Flu < 65 years 88525 Given 03/27/2012 Flu < 65 years 89805 Given 11/04/2011 Tdap - Boostrix/Adacel [id number] Refused 05/17/2018 Influenza Virus Vaccine, Quadrivalent, Split, Im Use 0.25ML 82120 Refused 03/25/2016 Influenza Virus Vaccine, Quadrivalent, Split, Im Use 0.25ML 46142 Refused 03/07/2014 Influenza Virus Vaccine, Quadrivalent, Split, Im Use 0.25ML 83668 Refused 11/04/2011 Influenza Virus Vaccine, Quadrivalent, Split, Im Use 0.25ML Vital Signs Date Vital Result Comment 04/18/2019 9:25am BP Systolic 132 mmHg BP Diastolic 84 mmHg Heart Rate 85 /min Body Temperature 97.5 F O2 % BldC Oximetry 99 % 03/26/2019 10:43am BP Systolic 122 mmHg BP Diastolic 78 mmHg Height 69.5 inches 5'9.50" Weight 181.00 lb Heart Rate 78 /min Body Temperature 96.6 F O2 % BldC Oximetry 97 % BMI (Body Mass Index) 26.3 kg/m2 Results Description No Information Available Procedures Date Code Description Status 03/26/2019 26672 Brief Emotional/Behav Assessment W/ Scoring Doc Per Completed Standard Inst Medical Devices Description No Information Available Encounters Type Date Location Provider Dx Diagnosis Office Visit 04/18/2019 9:15a [facility] XIOMARA Casillas M54.2 Cervicalgia M54.5 Low back pain Office Visit 03/26/2019 10:45a [facility] Kristian Bell MD Z13.31 Encounter for screening for depression Z68.26 Body mass index (BMI) 26.0-26.9, adult Office Visit 03/15/2019 10:[address]a [facility] Main XIOMARA Casillas L23.7 Allergic contact dermatitis due to plants, except food H92.01 Otalgia, right ear Z23 Encounter for immunization Assessments Date Code Description Provider 04/18/2019 M54.2 Cervicalgia XIOMARA Casillas 04/18/2019 M54.5 Low back pain XIOMARA Casillas 03/26/2019 Z13.31 Encounter for screening for depression Kristian Bell MD 03/26/2019 Z68.26 Body mass index (BMI) 26.0-26.9, adult Kristian Bell MD 03/15/2019 L23.7 Allergic contact dermatitis due to plants, except XIOMARA Casillas food 03/15/2019 H92.01 Otalgia, right ear XIOMARA Casillas 03/15/2019 Z23 Encounter for immunization XIOMARA Casillas Plan of Treatment Future Appointment(s):09/25/2019 11:00 am - Kristian Bell MD at [facility]2018 - DARA CasillasPM54.2 ZoursfmzxprE98.5 Low back pain Functional Status Description No Information Available Mental Status Description No Information Available Referrals Description No Information Available
[2019-04-21 11:46] VITALS: BP 138/94
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
[2019-04-21] MEDS ORDERED: Ketorolac *IM* INJ* 60 MG/2 ML VIAL IM ONE (12:36)
== END 2019-04-21 13:00 | disposition home or self-care (01) ==
LOC: UCEAST 11:23
DX: S16.1XXA Strain of muscle, fascia and tendon at neck level, initial encounter (principal); I10 Essential (primary) hypertension; Z88.5 Allergy status to narcotic agent; V49.50XA Passenger injured in collision with unspecified motor vehicles in traffic accident, initial encounter; Y92.9 Unspecified place or not applicable
CPT/HCPCS: 72050; 96372; 99211; G0463; J1885

== ENCOUNTER → 2019-07-20 08:13 | Day surgery (SDC) | payer OTHER ==
[~2019-07-20 08:13] MED LIST changes: +Acetaminophen TAB* 325 MG ONE; +Acetaminophen TAB* 325 MG PO PRN; -Buffered Lidocaine 0.9% SYRIN* 5 ML/SYR SYRINGE INTRADERM ONE; +Buffered Lidocaine 1% SYRIN* 1 ML/SYRINGE INTRADERM ONE; +Dexamethasone IV* 4 MG/ML 1 ML (4 MG) ONE; +DiMENhydriNATE IV* 50 MG/ML VIAL IV PUSH PRN; -Famotidine IV* 10 MG/ML 2 ML (20 mg) ONE; +Ketorolac INJ* 30 MG/ML 1 ML VIAL IV PRN; +Ketorolac INJ* 30 MG/ML 1 ML VIAL ONE; +Lactated Ringers 1000 ML Bag* 1,000 ML IV SCH; +Lidocaine 2% PF * 5 ML VIAL ONE; +Lidocaine 4% TOPICAL* 50 ML TOP.SOLN ONE; +Metoclopramide IV* 5 MG/ML 2 ML VIAL ONE; +Midazolam* 1 MG/ML 2 ML VIAL (2 MG) ONE; +Naloxone* 0.4 MG/ML 1 ML VIAL IV PRN; +Ondansetron INJ* 2 MG/ML VIAL ONE; +Oxymetazoline 0.05% NASAL SPR* 15 ML BTL ONE; +Propofol* 10 MG/ML 20 ML BTL ONE; +fentaNYL* 50 MCG/ML 2 ML VIAL (100 MCG VIAL) ONE
[2019-07-20 14:52] VITALS: BP 138/99
--- NOTE | 2019-07-21 00:56 | OP ---
DATE OF OPERATION: 07/20/19 - [facility] DATE OF : 65 SURGEON: Zachary Mccall MD DIRECTOR TRANSPORTATION: None. ANESTHESIA: General. PRE-OP DIAGNOSIS: Chronic eustachian tube dysfunction on the right. POST-OP DIAGNOSIS: Chronic eustachian tube dysfunction on the right. OPERATIVE PROCEDURE: Balloon dilatation of the right eustachian tube. ESTIMATED BLOOD LOSS: Negligible. INDICATIONS: This is a 54-year-old male with chronic right-sided eustachian tube dysfunction. He has needed multiple tympanostomy tubes, ultimately had a chronic perforation which was treated by another physician with a tympanoplasty. Once the ear drum was closed, he began to have problems with significant eustachian tube dysfunction. Tympanic membrane retracted and middle ear fluid again. The decision was made to attempt eustachian tube dilation as a means to address the central problem. DESCRIPTION OF PROCEDURE: He was brought to the operating room. General anesthesia was induced and LMA was placed. Time-out was performed. The patient 's right nasal cavity was packed with Afrin and lidocaine soaked pledgets. Once adequate timing was allowed for vasoconstriction, the 0-degree endoscope was used to perform a nasal endoscopy. Secretions were suctioned out of the nasopharynx. The eustachian tube balloon system was then brought into the field. It was threaded into the eustachian tube orifice until natural resistance was met. The balloon was then dilated to a pressure of 12 atmospheres for 2 minutes and then removed. There was no bleeding. The patient was then returned to the care of the anesthesia for extubation. [id number]/CPS #: [id number] [facility]
== END | disposition home or self-care (01) ==
LOC: OR 08:13
PROVIDERS: ATTEND Otolaryngology
DX: H69.91 Unspecified Eustachian tube disorder, right ear (principal); H90.A11 Conductive hearing loss, unilateral, right ear with restricted hearing on the contralateral side; J34.2 Deviated nasal septum; I12.9 Hypertensive chronic kidney disease with stage 1 through stage 4 chronic kidney disease, or unspecified chronic kidney disease; N18.9 Chronic kidney disease, unspecified; F41.8 Other specified anxiety disorders
CPT/HCPCS: 69799; C9745; A9270-GY; J1100; J1885; J2250; J2405; J2704; J2765; J3010